=== PATIENT | female | born 1965 | race Caucasian/White ===

== ENCOUNTER 2023-09-18 11:42 | Outpatient (CLI) | payer OTHER, SELFPAY ==
[2023-09-18 12:32] LABS: Basophils Percent Auto 0.5 % (0.2-1.2); Eosinophils Absolute Auto 0.1 K/mm3 (0-0.3); Eosinophils Percent Auto 1.5 % (0-4.4); Hematocrit 41.2 % (37.0-47.0); Hemoglobin 13.9 g/dL (12.0-15.0); Immature Granulocyte Absolute 0.04 K/mm3 (0.00-0.031); Immature Granulocyte Percent A 0.5 % (0-0.5); Lymphocytes Absolute Auto 1.69 K/mm3 (0.9-3.2); Lymphocytes Percent Auto 22.6 % (18.3-44.2); Mean Corpuscular HGB Conc 33.7 g/dl (32-36); Mean Corpuscular Hemoglobin 28.4 pg (26-34); Mean Corpuscular Volume 84.3 fl (80-100); Mean Platelet Volume 10.3 fl (7.4-10.4); Monocytes Absolute Auto 0.6 K/mm3 (0.1-0.6); Monocytes Percent Auto 8.4 % (2.6-8.5); Neutrophils Percent Auto 66.5 % (45.5-73.1); Platelet Count Result 268 k/mm3 (150-375); Red Blood Count 4.89 M/mm3 (4.2-5.4); Red Cell Distribution Width 13.4 % (11.5-14.5); White Blood Count 7.5 K/mm3 (4.5-10.0)
[2023-09-18 12:56] LABS: Alanine Aminotransferase 28 U/L (6-35); Albumin Level 4.5 g/dL (3.5-5.1); Alkaline Phosphatase 87 U/L (38-126); Anion Gap 7 mmol/L (8-16); Aspartate Amino Transferase 25 U/L (14-36); Bilirubin,Total 0.7 mg/dL (0.2-1.3); Blood Urea Nitrogen 14 mg/dL (7-17); Calcium 9.3 mg/dL (8.4-10.2); Carbon Dioxide 25 mmol/L (22-30); Chloride 103 mmol/L (98-107); Cholesterol 177 mg/dL (0-200); Estimated Glomerular Filt Rate > 60; Glucose 89 mg/dL (65-110); HDL Direct 71 mg/dL; Potassium 4.3 mmol/L (3.4-5.0); Sodium 135 mmol/L (137-145); Triglycerides 95 mg/dL (<150)
[2023-09-18 13:07] LABS: LDL Cholesterol Direct 78 mg/dL
== END 2023-09-18 11:43 | disposition home or self-care (01) ==
LOC: ANHLAB 11:50
PROVIDERS: PCP Family Medicine; Visit Provider Nurse Practitioner Family
DX: Z00.00 Encounter for general adult medical examination without abnormal findings (principal)
CPT/HCPCS: 36415; 80053; 80061; 84443; 85025

== ENCOUNTER 2023-12-22 11:00 | Emergency (ER) | payer OTHER, SELFPAY ==
--- NOTE | 2023-12-22 11:10 | ED.URI ---
HPI - URI/Sore Throat General Chief Complaint: Upper Respiratory Infection Stated Complaint: rt ear pain,sinus pressure Time Seen by Provider: 12/22/23 11:07 Source: patient Mode of arrival: ambulatory Limitations: no limitations History of Present Illness HPI Narrative: Brittney is a 58-year-old female patient presenting to clinic today with complaints of right ear pain and sinus pressure that has been ongoing since November. She reports she just finished up Augmentin yesterday for a sinus infection. Reports that she is still having a lot of ear pain and congestion. States that she has sloshing sound in her right ear when she is lying down and is still suffering from a cough and nasal congestion. Denies any fever or chills. Denies any shortness of breath or chest pain. MD elicited complaint: cough, rhinorrhea, nasal congestion and other (Right ear congestion) Related Data Home Medications Medication Instructions Recorded Confirmed atorvastatin 10 mg tablet mg 12/22/23 gabapentin 800 mg tablet mg 12/22/23 lisinopril 10 mg tablet mg 12/22/23 metoprolol succinate 25 mg mg PO 12/22/23 tablet,extended release 24 hr Allergies Allergy/AdvReac Type Severity Reaction Status Date / Time morphine Allergy Mild Hives / Verified 12/22/23 11:14 Red Face iohexol Allergy Hives Verified 12/22/23 11:14 [From contrast - CT, X-RAY] SEAFOOD-N & V Allergy Unknown HIVES Uncoded 12/22/23 11:14 Review of Systems Review of Systems: Pertinent positives per HPI. Patient denies any fever, chills, rash, headache, visual changes, dizziness, cough, shortness of breath, chest pain, palpitations, nausea, vomiting, diarrhea, constipation, abdominal pain, or any urinary issues. PMFSH Comments At the time of my signature, I reviewed and agree with the nursing past medical, surgical, social, and family history. There is no relevant family history pertinent to the patient complaint. Exam Narrative: General: Well-developed, well nourished, in no apparent distress Head: Normocephalic, atraumatic Eyes: Pupils equally round and reactive to light bilaterally, EOM intact, sclera and conjunctive clear, no discharge, lids normal Ears: Left TM intact and clear, right TM intact, bulging, fluid noted behind the TM, unable to see the ossicle due to the congestion, ear canals clear, no drainage, grossly hearing normal. Nose: Nares patent, clear nasal discharge, moderate inflammation, maxilla sinus tenderness. Mouth: Oral pharynx without lesions or masses, good dentition, MMM. Postnasal drip Neck: Supple, trachea midline, no enlargement of anterior or posterior cervical nodes, no thyroid masses or goiter palpable. Cardio: Regular rate and rhythm, s1 and s2 normal, no murmur appreciated. Resp: Clear to auscultation bilaterally, no rhonchi, rales, wheezing or rubs Course Course Emergency Course: Portions of this record may have been created with voice recognition software. Level of Care: Express Care Visit Vital Signs Vital signs: Vital signs reviewed MDM - URI/Sore Throat MDM Narrative Medical decision making narrative: At the time of visit patient is resting comfortably on the exam table. Patient appears to be nontoxic. Plan: I suspect patient has right serous otitis with sinusitis. Prescription for prednisone was given to the patient. Supportive measures were discussed with the patient and they voiced understanding discharge instructions and agrees to treatment plan. Return precautions reviewed Differential Diagnosis Differential diagnosis: Likely upper respiratory infection, otitis media, sinusitis, viral infection, bronchitis, influenza, pharyngitis and other (COVID) Discharge Plan Discharge Clinical Impression: Sinusitis Qualifiers: Sinusitis location: maxillary Chronicity: acute Recurrence: non-recurrent Qualified Code(s): J01.00 - Acute maxillary sinusitis, unspecified Acute serous otitis media, right ear Q
[2023-12-22 11:14] VITALS: BP 154/87; PULSE 77; RESP 16; TEMP 36.4; O2SAT 99
== END 2023-12-22 11:35 | disposition home or self-care (01) ==
PROVIDERS: Emergency Provider Nurse Practitioner Family; PCP Family Medicine
DX: J01.00 Acute maxillary sinusitis, unspecified (principal); H65.01 Acute serous otitis media, right ear; I10 Essential (primary) hypertension
CPT/HCPCS: 99213; G0463

== ENCOUNTER 2024-01-12 09:36 | Outpatient (CLI) | payer OTHER, SELFPAY ==
--- NOTE | 2024-01-17 16:43 | WPDHOMESLEEP ---
Sleep Study - Home Unattended Date of Study: 01/12/24 Ordering Provider: Todd OliverMD Interpreting Provider: Mayra Shankar, DO Home Sleep Study Type: Watch PAT Height: 1.57 m Weight: 78.471 kg Body Mass Index: 31.6 Neck Circumference (inches): 14.5 [place]: 9 Reason for Sleep Study Loud snoring, daytime hypersomnia Sleep History The patient is a 58-year-old female with hypertension, anxiety, depression, hyperlipidemia, trigeminal neuralgia, migraine, postmenopausal syndrome and tachycardia had a sleep study ordered by her primary care physician for evaluation of sleep apnea. The patient denies awakening from sleep short of breath. She denies awakening at night with heartburn, belching or cough. She constantly snores loudly enough that others complain. She occasionally has trouble sleeping when she has a cold. She denies waking up gasping for air throughout the night. She frequently has breathing problems at night observed by herself or others. She rarely sweats excessively at night. She denies having heart palpitations or irregular heartbeats during the night. She occasionally falls asleep during the day but never while driving. She denies sleep paralysis, cataplexy and hypnagogic / hypnopompic hallucinations. She denies having trouble at school or work due to sleepiness. She denies feeling afraid of going to sleep. She denies having nightmares. She occasionally remembers her dreams. She denies having thoughts racing through her mind. She occasionally feels sad, depressed and anxious. She frequently has muscular tension. She rarely notices parts of her body jerk. She occasionally kicks during the night. She denies having crawling and aching feelings in her legs but rarely has leg pain during the night. She constantly grinds her teeth during sleep and frequently awakens with morning jaw pain. She is occasionally bothered by pain during the day but rarely awakened by pain during the night. She occasionally wakes up feeling stiff in the morning. She occasionally wakes up with sore or achy muscles. She frequently wakes up with pain in the neck, spine and other joints. She goes to bed at 11:00 p.m. on weekdays and at midnight on the weekends. She is able to fall asleep immediately. She wakes up once throughout the night at most. Whenever she wakes up during the night she will try to go back to sleep or read. She wakes up between 5-7 a.m. on both weekdays and weekends. She typically gets 6 hours of sleep per night. She will stay in bed for 5-10 minutes after waking up in the morning. She currently lives alone. She will consume caffeinated beverages within 2 hours of bedtime. She denies engaging in physical exercise before bedtime. She will read and watch television before falling asleep. She will occasionally take naps in the afternoon or the evening and they are refreshing. She consumes 3-4 caffeinated beverages per day. She denies alcohol and recreational drug use. Medications Home Medications Medication Instructions Recorded Confirmed Type atorvastatin 10 mg tablet mg 12/22/23 History gabapentin 800 mg tablet mg 12/22/23 History lisinopril 10 mg tablet mg 12/22/23 History metoprolol succinate 25 mg mg PO 12/22/23 History tablet,extended release 24 hr prednisone 20 mg tablet 40 mg PO DAILY 5 days #10 tabs 12/22/23 Rx Sleep Procedure The sleep study was completed using AccuDraftT a technically adequate device with seven channels: peripheral arterial tone, actigraphy, body position, snore, respiratory movement, pulse oximetry, sleep staging, and heart rate. Prior to using the device, the patient received verbal and written instructions for its application and was provided with the help desk phone number for additional telephonic instruction with 24-hour availability of qualified personnel to answer questions. The study was scored using CMS guidelines. Sleep Architecture The patient
[2024-01-17 16:44] VITALS: BMI 31.6
== END 2024-01-13 07:30 | disposition home or self-care (01) ==
LOC: ANHCSM 09:37
PROVIDERS: PCP Family Medicine; Visit Provider Family Medicine
DX: G47.19 Other hypersomnia (principal)
CPT/HCPCS: 95800

== ENCOUNTER 2024-02-23 08:04 | Outpatient (CLI) | payer OTHER, SELFPAY ==
--- NOTE | ~2024-02-23 | CT_ITS ---
Non-contrast CT scan of the Abdomen and Pelvis Clinical indication: Abdominal pain Technique: 2.5 mm axial scans were obtained through the abdomen and pelvis without intravenous or or al contrast. Dose reduction technique was used on this scan by utilizing automated exposure control a nd iterative reconstruction technique. The dose-length product (DLP) was 620.04 mGy-cm. Findings: Images through the lung bases reveal no abnormalities. 3 mm nonobstructing left renal stone present. No right renal stone. No ureteral stone or hydronephros is on either side. The liver, spleen, pancreas, and adrenals appear normal. Cholecystectomy clips are present. There is no aortic aneurysm. There is no evidence of bowel obstruction. Small fat-containing umbilical hernia noted. Images through the pelvis were performed. There is no evidence of ascites or lymphadenopathy. Urinary bladder unremarkable. No pelvic mass seen. Impression: 3 mm nonobstructing left renal stone. Small fat-containing umbilical hernia. Reviewed, dictated and finalized at [facility]. Impression: 3 mm nonobstructing left renal stone. Small fat-containing umbilical hernia.
[2024-02-23 09:09] LABS: Basophils Percent Auto 0.5 % (0.2-1.2); Eosinophils Absolute Auto 0.1 K/mm3 (0-0.3); Eosinophils Percent Auto 2.4 % (0-4.4); Hematocrit 41.8 % (37.0-47.0); Hemoglobin 13.7 g/dL (12.0-15.0); Immature Granulocyte Absolute 0.03 K/mm3 (0.00-0.031); Immature Granulocyte Percent A 0.5 % (0-0.5); Lymphocytes Absolute Auto 1.48 K/mm3 (0.9-3.2); Lymphocytes Percent Auto 25.6 % (18.3-44.2); Mean Corpuscular HGB Conc 32.8 g/dl (32-36); Mean Corpuscular Hemoglobin 28.2 pg (26-34); Mean Platelet Volume 10.1 fl (7.4-10.4); Monocytes Absolute Auto 0.5 K/mm3 (0.1-0.6); Monocytes Percent Auto 8.7 % (2.6-8.5); Neutrophils Absolute Auto 3.6 K/mm3 (1.3-6.7); Neutrophils Percent Auto 62.3 % (45.5-73.1); Platelet Count Result 226 k/mm3 (150-375); Red Blood Count 4.86 M/mm3 (4.2-5.4); Red Cell Distribution Width 13.1 % (11.5-14.5); White Blood Count 5.8 K/mm3 (4.5-10.0)
[2024-02-23 09:51] LABS: Alanine Aminotransferase 31 U/L (6-35); Albumin Level 4.5 g/dL (3.5-5.1); Alkaline Phosphatase 78 U/L (38-126); Amylase 63 U/L (30-110); Anion Gap 6 mmol/L (4-12); Aspartate Amino Transferase 33 U/L (14-36); Bilirubin,Total 0.6 mg/dL (0.2-1.3); Blood Urea Nitrogen 15 mg/dL (7-17); Calcium 9.7 mg/dL (8.4-10.2); Carbon Dioxide 28 mmol/L (22-30); Chloride 108 mmol/L (98-107); Estimated Glomerular Filt Rate > 60; Glucose 99 mg/dL (65-110); Lipase 102 U/L (23-300); Potassium 4.4 mmol/L (3.4-5.0); Sodium 142 mmol/L (137-145)
== END 2024-02-23 08:05 | disposition home or self-care (01) ==
PROVIDERS: PCP Family Medicine; Visit Provider Family Medicine
DX: N20.0 Calculus of kidney (principal); K42.9 Umbilical hernia without obstruction or gangrene
CPT/HCPCS: 36415; 74176; 80053; 82150; 83690; 85025

== ENCOUNTER 2024-09-08 09:30 | Outpatient (RCR) | payer OTHER, SELFPAY ==
--- NOTE | 2024-07-21 16:26 | PTOPEVAL1 ---
Assessment and note entered by Tanja Amaral, PT Evaluation Information Assessment Status Evaluation Diagnosis trochanteric bursitis R hip, Osteoarthritis R hip ICD-10 Condition Codes (PT) Pain in right hip M25.551,R26.9,Weakness R53.1 Onset ~3-4 months Subjective Information September 2023 got covid-19 and all the joints hurt but when got better, the right hip continued to hurt. Steroid shot 08/13/2021 Started to flare up in the beginning of summer Reports sometimes limps with first getting up Pt reports is unable to roll onto her right side and is awake much of the night with this reports will rotate to pelvis and back Was walking 3 miles 3x weekly and hasn't been able to do that. Recently has been able to return to 1 .5 miles once weekly. Is limited in activities with family like bowling or trampoline park Alternates ice and heat, tried meloxicam but this didn't do much, tried stretches which didn't help. Steroid shot helped some but it's still painful Reported Pain Level Pain Score 4: Self Report Assessment PT Clinical Summary Pt presents with complaints of right hip pain. Reports initially began Sep 2023 and has been getting progressively worse. She had a steroid infection that helped but continues to have pain that ranges from 4-9/10. Evaluation demo's postural alignment deficits with bilat feet as well as sacral torsion and possible pelvic upslip. She surely demo's greatly reduced ROM of the right hip in all planes, significantly reduced strength in right hip compared to left. She also demo's guarded gait likely secondary to pain. Pt will greatly benefit from physical therapy to address deficits and improve function without pain Plan of Care Interventions Electrical Stimulation,Gait Training,Hot Pack/Cold Pack,Manual Therapy,Neuro Re-education,Patient/ Caregiver Educati,Therapeutic Activities, Therapeutic Exercise,Self-Care/Home Management, Ultrasound,Other Other Interventions Jerry, JUDY PT Services Indicated Yes Treatment Frequency and 2x weekly x 16 vistis Duration These treatments will address the objective and functional deficits as defined above. The patient will be advanced safely and appropriately in order for the patient to progress towards his/her prior level of function. Additional exercises will be introduced and as well as a comprehensive home exercise program upon discharge, if needed, ?to ensure carryover of functional gains achieved in the clinic. This treatment plan has been reviewed and agreement upon by the patient.
--- NOTE | 2024-07-21 16:26 | OPREHPOC ---
Outpatient Therapy Plan of Care This is a Multidisciplinary Plan of Care that may contain components documented by all disciplines (PT, OT, and ST.) PT Problem 1 PT Problem #1 Knowledge Deficit PT Goal 1 Goal / Goal Update Pt will be independent in HEP Pt will verbalize understanding of diagnosis and prognosis Target Visit 8 PT Problem 2 PT Problem #2 Pain PT Goal 1 Goal / Goal Update Pt will report lowest pain rating at 0/10 to show improvement in overall discomfort Target Visit 8 PT Goal 2 Goal / Goal Update Pt will report greatest pain level at 3/10 or less to improve ADLs and activities Target Visit 16 PT Problem 3 PT Problem #3 Impaired Range of Motion PT Goal 1 Goal / Goal Update Pt will demo passive right hip flexion on 0-120 Target Visit 8 PT Goal 2 Goal / Goal Update Pt will demo ROM right hip within 75% of left hip in all planes Target Visit 16 PT Problem 4 PT Problem #4 Impaired Strength PT Goal 1 Goal / Goal Update Pt will demo equal strength RLE and LLE in all tested planes Target Visit 8 PT Goal 2 Goal / Goal Update Pt will demo strength of 4/5 in all tested planes Target Visit 16
--- NOTE | 2024-09-08 16:53 | PTOPPROG ---
Assessment and note entered by Tanja Amaral, PT Evaluation Information Assessment Status Progress Diagnosis trochanteric bursitis R hip, Osteoarthritis R hip ICD-10 Condition Codes (PT) Pain in right hip M25.551,R26.9,Weakness R53.1 Onset ~3-4 months Subjective Information Pt reports feeling 20% improved overall. States is sleeping better some nights, but one night a while back was very bad when the weather changed. Assessment PT Clinical Summary Pt reports feeling minimal improvement in her pain in her hip. Cont to have decreased ROM in right hip though this is improved overall. Cont to have deficits in RLE hip strength as well. Pt special tests are negative for labral clicking, meniscal tear, valgus and varus stress. X-ray shows degeneration of the hip joint. As patient has made minimal progress with therapy, she was advised to return to ortho to discuss further options. Thus patient is being place on hold at this time to allow her time to discuss options with her Ortho and return to therapy if necessary. Otherwise if she has not returned or communicated a plan to return within 30 days, she will be discharged from this POC. Plan of Care Interventions Electrical Stimulation,Gait Training,Hot Pack/Cold Pack,Manual Therapy,Neuro Re-education,Patient/ Caregiver Educati,Therapeutic Activities, Therapeutic Exercise,Self-Care/Home Management, Ultrasound,Other Other Interventions Jerry, JUDY PT Services Indicated Yes Treatment Frequency and 1-2xd weekly x 10 visits Duration These treatments will address the objective and functional deficits as defined above. The patient will be advanced safely and appropriately in order for the patient to progress towards his/her prior level of function. Additional exercises will be introduced and as well as a comprehensive home exercise program upon discharge, if needed, ?to ensure carryover of functional gains achieved in the clinic. This treatment plan has been reviewed and agreement upon by the patient.
== END 2024-10-19 23:59 | disposition home or self-care (01) ==
LOC: ANHHIPT 09:30
PROVIDERS: PCP Family Medicine; Visit Provider Orthopaedic Surgery
DX: M70.61 Trochanteric bursitis, right hip (principal); M16.11 Unilateral primary osteoarthritis, right hip
CPT/HCPCS: 97014; 97035; 97110; 97140; 97162; 97530; 97750; G0283

== ENCOUNTER 2024-09-22 11:19 | Emergency (ER) | payer OTHER, SELFPAY ==
[2024-09-22 11:39] VITALS: BP 150/86; PULSE 76; RESP 16; TEMP 36.7; O2SAT 99
--- NOTE | 2024-09-22 11:39 | ED.FEMALEGU ---
HPI - Female Genitourinary General Chief complaint: Urogenital-Female Stated complaint: UTI Time Seen by Provider: 09/22/24 11:39 Source: patient Mode of arrival: ambulatory Limitations: no limitations History of Present Illness HPI Narrative: Brittney is a 49-year-old female patient presenting to the clinic today with complaints of possible UTI. She reports she has been having some burning with urination, mid low back pain, and urinary frequency that started 3 days ago. She reports that she did take a tub bath few days prior that to soak her hip as she has been having hip pain. Denies any vaginal discharge but does have some internal vaginal burning. She is not currently sexually active in not concern for STIs. Has had a full hysterectomy. She denies any abdominal pain, vomiting, or diarrhea. Does report some nausea but it has resolved. Related Data Home Medications Medication Instructions Recorded Confirmed atorvastatin 10 mg tablet mg 12/22/23 07/13/24 gabapentin 800 mg tablet mg 12/22/23 07/13/24 lisinopril 10 mg tablet mg 12/22/23 07/13/24 metoprolol succinate 25 mg mg PO 12/22/23 07/13/24 tablet,extended release 24 hr sertraline 100 mg tablet (Zoloft) 100 mg PO DAILY 07/27/24 Allergies Allergy/AdvReac Type Severity Reaction Status Date / Time morphine Allergy Mild Hives / Verified 09/22/24 11:54 Red Face iohexol Allergy Hives Verified 09/22/24 11:54 [From contrast - CT, X-RAY] SEAFOOD-N & V Allergy Unknown HIVES Uncoded 09/22/24 11:54 Review of Systems Review of Systems: Pertinent positives per HPI. Patient denies any fever, chills, rash, headache, visual changes, dizziness, cough, runny nose, sore throat, shortness of breath, chest pain, palpitations, vomiting, diarrhea, constipation, abdominal pain PMFSH Family History Family History Unknown Lung disease Hypertension Cerebrovascular accident High cholesterol Social History Social History Smoking status: Never smoker Alcohol intake: current Alcohol use details: 2 drinks per month Comments At the time of my signature, I reviewed and agree with the nursing past medical, surgical, social, and family history. There is no relevant family history pertinent to the patient complaint. Exam Narrative: General: Well-developed, well nourished, in no apparent distress. Head: Normocephalic, atraumatic. Cardio: Regular rate and rhythm, s1 and s2 normal, no murmur appreciated. Resp: Clear to auscultation bilaterally, no rhonchi, rales, wheezing or rubs. Abdomen: Soft, pliable, bowel sounds present in all quadrants, non-tender to palpation, no organomegly, no CVAT tenderness. : Deferred Course Course Emergency Course: Portions of this record may have been created with voice recognition software. Level of Care: Express Care Visit Vital Signs Vital signs: Vital Signs Temperature 36.7 C 09/22/24 11:39 Pulse Rate 76 09/22/24 11:39 Respiratory Rate 16 09/22/24 11:39 Blood Pressure 150/86 H 09/22/24 11:39 Pulse Oximetry 99 09/22/24 11:39 Oxygen Delivery Room Air 09/22/24 11:39 Temperature 36.7 C 09/22/24 11:39 Pulse Rate 76 09/22/24 11:39 Respiratory Rate 16 09/22/24 11:39 Blood Pressure 150/86 H 09/22/24 11:39 Pulse Oximetry 99 09/22/24 11:39 Oxygen Delivery Room Air 09/22/24 11:39 Vital signs reviewed MDM - Female Genitourinary MDM Narrative Medical decision making narrative: At the time of visit patient is resting comfortably on the exam table. Patient appears to be nontoxic. Labs: Urinalysis is negative for any sign of infection in the clinic today. We will send urine for culture. Plan: Patient would like to try some Diflucan as she thinks that she may have a yeast infection that she is having burning within the vagina. She denies any vaginal discharge or odor at this time. Will send in prescription for Diflucan and send urine for culture. Patient denies any history of interstitial cystitis or concern for sexually transmitted infections. Supportive measures were discussed with the patient and they voiced understanding discharge instructions and agrees to treatment plan. Return precautions reviewed Differential Diagnosis Differential diagnosis: Likely urinary tract infection, bacterial vaginosis, trichomoniasis, cervicitis, ovarian cyst, vaginitis and cystitis Lab Data Labs: Lab Results 09/22/24 Range/Units 11:57 POC Urine Color Yellow POC Urine Clarity Clear POC Urine pH 6.0 POC Ur Specif Nak[place] 1.010 POC Urine Protein Negative (Negative) POC Ur Glucose (UA) Negative (Negative) POC Urine Ketones Negative (Negative) POC Urine Blood Negative (Negative) POC Urine Nitrite Negative (Negative) POC Urine Bilirubin Negative (Negative) POC Urine Urobilinogen 0.2 POC U Leukocyte Esteras Negative (Negative) Discharge Plan Discharge Clinical Impression: Symptoms of urinary tract infection, Vaginal burning Patient Disposition: Home, Self-Care Condition: Stable Instructions: Antibiotic Form, Dysuria (ED), Urinary Urgency and Frequency (DC) Additional Instructions: UA is negative in the clinic today. We will send for culture Take medications as prescribed-Diflucan Increase fluids and stay well hydrated Wipe front to back. May use wet wipes. Avoid tub baths If sexually active- pee before and after intercourse. Wear cotton panties Avoid tight clothing up against the genitals Follow up with your PCP in 1 week if symptoms persist. Prescriptions: New fluconazole 150 mg tablet 150 mg PO ONCE Qty: 2 0RF Rx Instructions: as a single dose. May repeat in 72 hours if needed. No Action atorvastatin 10 mg tablet gabapentin 800 mg tablet lisinopril 10 mg tablet metoprolol succinate 25 mg tablet extended release 24 hr PO sertraline [Zoloft] 100 mg tablet 100 mg PO DAILY Follow-up/Referrals: Benito,Todd Marinelli MD [Primary Care Provider] - Time of Disposition: 12:08 Quality NIHSS Nursing Documentation ED NIHSS nursing documentation: reviewed/agree
[2024-09-22 12:01] LABS: EDUAAPPEAR Clear; EDUABILI Negative (Negative); EDUABLOOD Negative (Negative); EDUACOLOR1 Yellow; EDUAGLUCOSE Negative (Negative); EDUAKETONE Negative (Negative); EDUALEUKO Negative (Negative); EDUANITRATE Negative (Negative); EDUAPROTEIN Negative (Negative); EDUAUROBILI 0.2
== END 2024-09-22 12:15 | disposition home or self-care (01) ==
PROVIDERS: Emergency Provider Nurse Practitioner Family; PCP Family Medicine
DX: R30.0 Dysuria (principal); R35.0 Frequency of micturition; M54.50 Low back pain, unspecified; R10.2 Pelvic and perineal pain
CPT/HCPCS: 81003; 87086; 99213; G0463

== ENCOUNTER 2024-09-25 10:10 | Outpatient (CLI) | payer OTHER, SELFPAY ==
--- NOTE | ~2024-09-25 | MR_ITS ---
EXAMINATION: MR hip RT wo con DATE: 09/25/2024 11:13 INDICATION: Right hip pain TECHNIQUE: Magnetic resonance imaging (MRI) of the right hip was performed without intravenous contr ast. Sequences included full-field axial PD-weighted FS FSE and T1-weighted FSE, coronal of the pelvi s with PD-weighted FS FSE, T2-weighted FSE and T1-weighted FSE, small field of view of the right hip with axial PD-weighted FS FSE, sagittal PD-weighted FS FSE, coronal PD-weighted FS FSE and coronal T 2 weighted FSE. Additional radial T1-weighted FGR oriented orthogonal to the acetabular rim were obta ined for evaluation of the labrum. COMPARISON: None FINDINGS: Bones/labrum/cartilage: Alignment is normal. No fracture, avascular necrosis or pathologic marrow replacing process. Partial -thickness tear along the 11:00-12:30 position of the superolateral right acetabular labrum (3:00 ant erior). Mild osteoarthritis at the right hip with mild partial-thickness cartilage loss without evide nt chondral surface regularity most prominent along the anterior and posterior superior joint space. Fluid: Symmetric physiologic amount of fluid within both hip joints. Soft tissues: Normal and symmetric muscle bulk and signal in the pelvis and visualized proximal thighs. There is ri ght gluteus minimus bursitis with mild tendinopathy and small partial-thickness tear at the greater t rochanteric insertion of the right gluteus minimus tendon. The iliopsoas,, proximal hamstring and rem aining gluteal tendons are normal. The uterus is not identified and has likely been surgically resect ed. There are few diverticula along the sigmoid colon without adjacent inflammatory change to suggest diverticulitis. Normal appendix. Limited evaluation of visceral organs of the pelvis is otherwise un remarkable. No pathologically enlarged pelvic/inguinal lymphadenopathy. IMPRESSION: 1. Right gluteus minimus bursitis with mild tendinopathy and mild partial thickness tear at the great er trochanter insertion of the right gluteus minimus tendon. 2. Mild right hip osteoarthritis with tear of the superolateral acetabular labrum. Reviewed, dictated and finalized at location B. ORT TRAFFIC CONTROLLER IMPRESSION: 1. Right gluteus minimus bursitis with mild tendinopathy and mild partial thick ness tear at the greater trochanter insertion of the right gluteus minimus tend on. 2. Mild right hip osteoarthritis with tear of the superolateral acetabular labr um.
== END 2024-09-25 10:11 | disposition home or self-care (01) ==
LOC: GOSHIMG 10:10
PROVIDERS: PCP Family Medicine; Visit Provider Orthopaedic Surgery
DX: M70.71 Other bursitis of hip, right hip (principal); M76.01 Gluteal tendinitis, right hip; S76.011A Strain of muscle, fascia and tendon of right hip, initial encounter; S73.191A Other sprain of right hip, initial encounter; X58.XXXA Exposure to other specified factors, initial encounter; M16.11 Unilateral primary osteoarthritis, right hip
CPT/HCPCS: 73721

== ENCOUNTER 2024-10-10 08:24 | Outpatient (CLI) | payer OTHER, SELFPAY ==
--- NOTE | ~2024-10-10 | XR_ITS ---
EXAMINATION: XR lg joint inject/asp w image DATE: 10/10/2024 09:12 INDICATION: Right hip arthritis TECHNIQUE: A time-out was performed to verify the patient's name, date of , and procedure to b e performed. The procedure including the risks, benefits, and alternatives was discussed with the pat ient. Risks discussed included bleeding and infection. The patient understood the risks and agreed to proceed. The skin overlying the right hip joint was prepped and draped in usual sterile fashion. A nesthetic was administered with 1% lidocaine subcutaneously. A 22 G needle was advanced under fluoro scopic guidance into the joint. Injection of a small amount of room air confirmed intra-articular po sition of the needle. Subsequently, injectate consisting of 3 mL of a 2:1 extradural of 0.5% Marcain e: 80 mg/mL Depo-Medrol was instilled. The needle was removed and the entry site was cleaned and dres sed. There were no immediate complications. Fluoroscopy exposure time was 0.1 minutes. The total num brennan of images was 1. FINDINGS: Real-time fluoroscopy demonstrates the needle and injected gas within the right hip joint. Patient's pain prior to procedure:8/10. Patient's pain following the procedure: 4/10. IMPRESSION: 1. Successful right hip joint injection of local anesthetic and steroid with decrease in the patient' s presenting pain. Reviewed, dictated and finalized at location A. E MINER IMPRESSION: 1. Successful right hip joint injection of local anesthetic and steroid with de crease in the patient's presenting pain.
== END 2024-10-10 08:25 | disposition home or self-care (01) ==
PROVIDERS: PCP Family Medicine; Visit Provider Orthopaedic Surgery
DX: M16.11 Unilateral primary osteoarthritis, right hip (principal)
CPT/HCPCS: 20610; 77002; J1010

== ENCOUNTER 2025-05-28 07:23 | Outpatient (CLI) | payer OTHER, SELFPAY ==
--- OUTSIDE RECORDS SUMMARY | 2025-05-28 07:29 | XMS_ITS ---
Author Organization [facility] [place] ([address]) Address [address] [facility] [address] [place] [address] Care Team Providers Care Third Rail Installer Name Role Phone Alexx Monge Unavailable [phone] REASON FOR VISIT [facility], [...] discontinue and re-order from Quick Search* Active TRANSPORTATION PROJECT MANAGER Thyroid 30 MG 1/2 tablet on an [...] Provider Diagnosis [facility] [place] ([address]) [address] [place] [phone] 09/07/2024 Alexx Monge Chronic fatigue, unspecified R53.82 [...] None Progress Notes * Brittney WELSHDOB: [birth year] (59 yo F)Acc No.[id number]:09/07/2024 Weight Loss Patient: Brittney BORJA Provider: Leticia Monge MD :1965 A ge:59 Y S ex:Female Date:09/07/2024 Address:[address] [place], [place] [id number] Subjective: * Chief Complaints: * 1 . [...] tab(s) orally once a day , Taking TRANSPORTATION PROJECT MANAGER Thyroid 30 MG Tablet 1/2 tablet on [...] signature of Reid Monge MD, FAAAAI on 05/28/2025 at 07:28 AM CDT Sign off status: Pending * Provider: Leticia Monge MD Date: 1 Generated for Vianey cantrell/Honey/Raegan on: 0 05/28/2025 07:28 AM CDT
--- OUTSIDE RECORDS SUMMARY | 2025-05-28 07:29 | XMS_ITS ---
Author Organization [facility] [place] ([address]) Address [address] [facility] [address] [place] [address] Care Team Providers Care Web Ui Developer Name Role Phone Alexx Monge Unavailable [phone] REASON FOR VISIT [facility], on Tirzepatide, no side effects, appetite suppression is lasting 3-4 days. no new side effects, Desired weight loss: 30-40 lbs, -0.2 lbs lbs since last visit, -14.6 lbs total, No history MTC or MEN2 or pancreatitis, Concerned about future DM and OA Medications Medication SIG (Take, Route, Frequency, Duration) Notes Start Date End Date Status ANALYTIC PROGRAMMER Thyroid 30 MG 1/2 tablet on an [...] Provider Diagnosis [facility] [place] ([address]) [address] [place] [phone] 08/31/2024 Alexx Monge Chronic fatigue, unspecified R53.82 [...] abdomen Frequency: weekly Lot Number/Expiration: Medication Source: [place] IAT-Auto Adverse Reaction: None Progress Notes * Brittney WELSHDOB: [birth year] (59 yo F)Acc No.[id number]:08/31/2024 Weight Loss Patient: Lizbet BORJAette Provider: Leticia Monge MD :1965 A ge:59 Y S ex:Female Date:08/31/2024 Address:[address] [place] [address] Subjective: * Chief Complaints: * 1 . [...] tab(s) orally once a day , Taking ANALYTIC PROGRAMMER Thyroid 30 MG Tablet 1/2 tablet on [...] ot Number/Expiration 0 M edication Source [facility] A dverse Reaction N one * Follow Up: 1 Week (Reason: GLP-1 Agonist Administration. GLP-1 Agonist Administration) * Billing Information: * Visit Code: * Procedure Codes: * Electronic signature of Patr ick Win , MD, FAAAAI on 05/28/2025 at 07:29 AM CDT Sign off status: Pending * Provider: Leticia Monge MD Date: Generated for Vianey cantrell/Honey/Raegan on: 0 05/28/2025 07:29 AM CDT
--- OUTSIDE RECORDS SUMMARY | 2025-05-28 07:29 | XMS_ITS | Clinical Summary ---
Author Organization [facility] Address [address] [place] [address] Phone Care Team Providers Care Operations Supervisor Chemical Cleaning Name Role Phone Todd Oliver MD Primary Care Provide r Encounters Date Type Department Care Team Description 05/08/2025 External Device Data [facility] ABSTRACTION Provider, Abstract 04/10/2025 External Device Data [facility] ABSTRACTION Provider, Abstract 04/04/2025 External Device Data [facility] ABSTRACTION Provider, Abstract 04/03/2025 External Device Data [facility] ABSTRACTION Provider, Abstract from Last 3 Months Family History Medical History Relation Name Comments Breast Cancer Other MGAunt Ovarian Cancer Neg Hx Relation Name Status Comments Other MGAunt Social History Tobacco Use Types Packs/Day Years Used Date Smoking Tobacco: Never Assessed Comments Unknown Sex and Gender Information Value Date Recorded Sex Assigned at Not on file Legal Sex Female 1:56 PM CDT Gender Identity Not on file Sexual Orientation Not on file Plan of Treatment Health Maintenance Due Date Last Done Comments FIT-DNA Q 3 years 2008 FIT/FOBT Q 1 year 2008 Flex Sig/CT Colonography Q 5 years 2008 ZOSTER VACCINE (1 of 2) 2013 COVID-19 Vaccine (2023-2 5 season) 2024 08/21/2021, 12/16/2020, 11/25/2020 BREAST CANCER SCREENING 05/24/2025 05/24/20, 08/27/2023, 02/18/2023, Additional history exists INFLUENZA VACCINE (#1) 2025 COLORECTAL SCREENING 09/29/2028 09/29/2018 Colorectal Cancer Screening 09/29/2028 DTAP/TDAP/TD VACCINES (2 - T d or Tdap) 04/14/2033 04/14/2023 RSV VACCINE (60+ or ) (1 - 1-dose 75+ series) 2038 Procedures Procedure Name Priority Date/Time Associated Diagnosis Comments MAMMO 3D GALLO DIAGNOSTIC BILAT W OR WO CAD Routine 05/24/2024 10:06 AM CDT Abnormal mammogram from Last 3 Months or Most Recently Relevant to Health Maintenance Results * (ABNORMAL) MAMMO 3D GALLO DIAGNOSTIC BILAT W OR WO CAD (05/24/2024 10:06 AM CDT) Anatomical Region Laterality Modality Breast Bilateral Mammography 05/24/2024 10:0 6 AM CDT Impressions 05/24/2024 10:42 AM CDT IMPRESSION: 1. Unchanged multiple similar-appearing bilateral breast masses likely representing cysts. RECOMMENDATION: Follow-up bilateral diagnostic mammography in one year to assess for change. Bilateral breast ultrasound may also be required. BI-RADS Category 3: Probably benign findings DICTATION LOCATION: [facility] 05/24/2024 10:42 AM CDT EXAM: BILATERAL DIGITAL DIAGNOSTIC MAMMOGRAPHY WITH TOMOSYNTHESIS AND CAD Exam date: 05/24/2024 INDICATION: Follow-up probably benign similar-appearing bilateral breast masses likely representing cysts. COMPARISON: 08/27/2023, 02/18/2023, 01/01/2023, 08/02/2018, 07/14/2017 mammography. Correlation is made to the ultrasound 02/18/2023 and 01/27/2023. BREAST COMPOSITION: Scattered areas of fibroglandular densities. MAMMOGRAM: Redemonstration of the multiple bilateral partially circumscribed obscured masses. Several of these appear to have layering calcium deposits compatible with benign cyst. These are unchanged when compared to the prior exam from 01/01/2023. There is no concerning developing abnormality within either breast. No distortion. Procedure Note Diana Go MD - 05/24/2024 EXAM: BILATERAL DIGITAL DIAGNOSTIC MAMMOGRAPHY WITH TOMOSYNTHESIS AND CAD Exam date: 05/24/2024 INDICATION: Follow-up probably benign similar-appearing bilateral breast masses likely representing cysts. COMPARISON: 08/27/2023, 02/18/2023, 01/01/2023, 08/02/2018, 07/14/2017 mammography. Correlation is made to the ultrasound 02/18/2023 and 01/27/2023. BREAST COMPOSITION: Scattered areas of fibroglandular densities. MAMMOGRAM: Redemonstration of the multiple bilateral partially circumscribed obscured masses. Several of these appear to have layering calcium deposits compatible with benign cyst. These are unchanged when compared to the prior exam from 01/01/2023. There is no concerning developing abnormality within either breast. No distortion. IMPRESSION: 1. Unchanged multiple similar-appearing bilateral breast masses likely representing cysts. RECOMMENDATION: Follow-up bilateral diagnostic mammography in one year to assess for change. Bilateral breast ultrasound may also be required. BI-RADS Category 3: Probably benign findings DICTATION LOCATION: [facility] Todd Oliver MD MAMMO ORDERABLES Abiola l Result from Last 3 Months or Most Recently Relevant to Health Maintenance Insurance Care Teams Operations Supervisor Chemical Cleaning Relationship Specialty [place] [address] [place] [address] PCP - General Family Practice 02/18/23
--- OUTSIDE RECORDS SUMMARY | 2025-05-28 07:29 | XMS_ITS | Patient Health Record ---
Author Organization [facility] Address [address] [facility] [address] [place] [address] Care Team Providers Care Analytical Sciences Director Name Role Phone Benito STERLING, Todd Primary Care Provider Eliezer FINN MD, BERYL Unavailable Reason For Referral No Information Plan Of Treatment Pending Test Test Name Order Date Colonoscopy 09/02/2018 Insurance Providers Payer Name Payer Address Payer Phone Subscriber Number Group Number Insured Name Patient Relationship to Insured Coverage Start Date Coverage End Date [employer] [address] [place], [place] [id number] Brittney Ni Self - patient is the insured
--- OUTSIDE RECORDS SUMMARY | 2025-05-28 07:29 | XMS_ITS ---
Author Organization [facility] ([address]) Address [address] [place] [address] Care Team Providers Care Thaw Shed Heater Tender Name Role Phone SaleemAlexx [phone] REASON FOR VISIT [facility] Weight [facility], on Tirzepatide, no side effects, appetite suppression is lasting 4-5 days. no new side effects, Desired weight loss: 30-40 lbs +0.4 lbs since last visit, -14.2 lbs total, No history MTC or MEN2 or pancreatitis, Concerned about future DM and OA Encounters Encounter Location Date Provider Diagnosis [facility] ([address]) [address] [place] [address] 09/14/2024 Alexx Monge Chronic fatigue, unspecified R53.82 [...] * Brittney WELSHDOB: [birth year] (59 yo F)Acc No.[id number]:09/14/2024 Weight Loss Patient: Brittney BORJA Provider: Leticia Monge MD :1965 A ge:59 Y S ex:Female Date:09/14/2024 Address:[address] [place] [address] Subjective: * Chief Complaints: * 1 . [...] Reid Monge MD, FAAAAI on 05/28/2025 at 07:29 AM CDT Sign off status: Pending * Provider: Leticia Monge MD Date: Generated for Printi ng/Fateeteeg/eTransmitting on: 05/28/2025 07:29 AM CDT
--- OUTSIDE RECORDS SUMMARY | 2025-05-28 07:29 | XMS_ITS | Clinical Summary ---
Author Organization [facility] Address [address] [place] [address] Care Team Providers Care Heel Seat Flap Stapler Name Role Phone Todd Oliver MD Primary Care Provider [phone]- [phone] Allergies Active Allergy Reactions Criticality Noted Date Comments Iodinated Contrast Media Hives Medium 11/11/2017 Morphine Itching,Swelling Medium Shellfish Containing Products Itching,Swelling Medium Shellfish Derived Itching,Swelling Medium Medications sertraline (ZOLOFT) 50 mg tablet take 1 tablet by oral route every day 0 0 3 Active Additional Information Patient taking differently: 100 mg, Reported on 12/29/2022 b complex vitamins tablet takes daily 0 0 5 Active omeprazole (PriLOSEC) 40 mg capsule take 1 capsule by oral route 2 times every day before a meal 0 0 5 Active Additional Information Patient not taking.Reported on 10/27/2021 lisinopril (PRINIVIL,ZESTR IL) 10 mg tablet Take 10 mg by mouth daily 0 9 Active metoprolol XL (TOPROL-XL) 25 mg 24 hr tablet Take 25 mg by mouth daily 1 9 Active cholecalciferol (VITAMIN D-3) 2000 unit tablet Take 2,000 Units by mouth daily Active tiZANidine (ZANAFLEX) 4 mg tablet Take 4 mg by mouth every 6 (six) hours as needed 0 Active atorvastatin (LIPITOR) 10 mg tablet Take 10 mg by mouth daily 0 Active estrogens, conjugated, (Premarin) vaginal cream APPLY 1/2 GRAM VAGINALLY TWICE WEEKLY NEEDED FOR DRYNESS 1 Active meloxicam (MOBIC) 15 mg tablet TAKE 1/2 TABLET - 1 TABLET DAILY. MAX DOSE IS 15 MG/24 HOURS. DO NOT TAKE WITH OTHER NSAIDS. 2 Active gabapentin (NEURONTIN) 800 mg tablet Take 1 tablet (800 mg total) by mouth 3 (three) times a day 270 tablet 3 3 Active eletriptan (RELPAX) 40 mg tablet Take 1 tablet (40 mg total) by mouth as needed for migraine 9 tablet 11 3 Active prochlorperazin e (COMPAZINE) 10 mg tabletIndicatio ns:Nausea and Vomiting Take 1 tablet (10 mg total) by mouth 3 (three) times a day as needed for nausea 30 tablet 5 3 Active Active Problems Problem Noted Date Diagnosed Date Migraine without aura and wi thout status migrainosus, not intractable 05/13/2017 Assessment & Plan (05/13/2017 10:45 AM CDT): Headaches are improving with treatment. Continue current treatment regimen. Advised to keep a headache diary. Counseled regarding lifestyle modifications. Take relpax as needed for headache. Given script for compazine 10 mg to be taken every 8 hours as needed for nausea. Instructed patient to take triptan early for best results at onset of headache. May repeat in 2 hours if needed. Maximum 2 doses in 24 hours. Avoid taking triptan greater than 3 days per week or 10 doses per month to prevent rebound headaches. Spinal stenosis of cervical region 04/23/2016 Degeneration of intervertebral disc of cervical region 01/22/2016 Cervical radiculopathy 01/20/2016 Atypical facial pain 08/15/2013 Overview (02/19/2017): Atypical facial pain Assessment & Plan (05/13/2017 10:46 AM CDT): She will continue to take Gabapentin 800mg TID. She will call if symptoms increase or she has side effects. Migraine 08/15/2013 Overview (02/19/2017): Migraine Surgical History Surgery Date Site/Laterality Comments SECTION HYSTERECTOMY Hysterectomy HERNIA REPAIR hernia surgery OTHER SURGICAL HISTORY tarsal tunnel surgery CERVICAL FUSION Cervical fusion CHOLECYSTECTOMY 11/15/2009 - 11/14/2010 Medical History Medical History Date Comments Hx Other Medical Headache, migra ine Hx Other Medical atypical facial pain Hx Other Medical shingles Hx Other Medical cervical disc d isease Hx Other Medical lumbar disc dis ease Hx Other Medical TMJ Migraine Hypertension 2019 Family History Medical History Relation Name Comments Cancer Father Otilio Avery Cancer Mother Priscilla Avery Heart disease Mother Priscilla Avery Hypertension Mother Priscilla Avery Parkinsonism Mother Priscilla Avery Parkinson's dis ease; Relation Name Status Comments Father Otilio Avery Mother Priscilla Avery Social History Tobacco Use Types Packs/Day Years Used Date Smoking Tobacco: Never Smokeless Tobacco: Never Alcohol Use Standard Drinks/Week Comments Yes 0 (1 standard drink = 0.6 oz pur e alcohol) rarely AUDIT-C Answer Date Recorded Q1: How often do you have a drink containing alc ohol? Monthly or less 12/29/2022 Q2: How many drinks containi ng alcohol do you have on a typical day when you are drinking? 1 or 2 12/29/2022 Q3: How often do you have si x or more drinks on one occasion? Never 12/29/2022 Comments Unknown Sex and Gender Information Value Date Recorded Sex Assigned at Not on file Legal Sex Female 2:36 AM HEAD AND NECK SURGEON Gender Identity Female 10/26/2020 8:06 AM HEAD AND NECK SURGEON Sexual Orientation Straight 10/26/2020 8: 06 AM HEAD AND NECK SURGEON Obstetrics History Last Filed Vital Signs Vital Sign Reading Time Taken Comments Blood Pressure 122/82 12/29/2022 1:21 PM HEAD AND NECK SURGEON Pulse 94 12/29/2022 1:21 PM HEAD AND NECK SURGEON Temperature - - Respiratory Rate 16 12/29/2022 1:21 PM HEAD AND NECK SURGEON Oxygen Saturation 97% 03/04/2016 11:50 AM CDT Inhaled Oxygen Concentration - - Weight 74.8 kg (165 lb) 12/29/2022 1:21 PM HEAD AND NECK SURGEON Height 157.5 cm (5' 2.01) 12/29/2022 1:21 PM CS T Body Mass Index 30.17 12/29/2022 1:21 PM HEAD AND NECK SURGEON Plan of Treatment Health Maintenance Due Date Last Done Comments Breast Cancer Screening-Mammogram 1965 Colon Cancer Screening-Colonoscopy 1965 Depression Screening 1965 Hepatitis C Screening 1965 DTaP/Tdap/Td Vaccine (1 - Tdap) 1974 Hepatitis B Screening 1981 Regular Well Visit/Exam 18-64 1981 Zoster Vaccine (1 of 2) 2013 Influenza Vaccine (Season Ended) 2025 08/11/2018, 08/31/2017 Pneumococcal vaccine <65 Aged Out No longer eligible based on patient's age to complete this topic Insurance [employer]OS [facility] Address: [address] [place] [address] [facility] CHOICE PLUS [facility] HMO/PPO Address: [address] [address] [place] [address] Care Teams Heel Seat Flap Stapler Relationship Specialty [place] [address] [address] PCP - General 04/01/17
--- OUTSIDE RECORDS SUMMARY | 2025-05-28 07:29 | XMS_ITS | Referral Summary ---
Author Organization [facility] Address [address] [place] [address] Care Team Providers Care Business Machine Operator Name Role Phone Todd Oliver MD Primary Care Provider +1- [phone] Allergies Active Allergy Reactions Criticality Noted Date [...] side effects. Migraine 08/15/2013 Overview (02/19/2017): Migraine Social History Tobacco Use Types Packs/Day Years [...] on file Legal Sex Female 2:36 AM COMMAND AND CONTROL Gender Identity Female 10/26/2020 8:06 AM COMMAND AND CONTROL Sexual Orientation Straight 10/26/2020 8: 06 AM COMMAND AND CONTROL Last Filed Vital Signs Vital Sign Reading Time Taken Comments Blood Pressure 122/82 12/29/2022 1:21 PM COMMAND AND CONTROL Pulse 94 12/29/2022 1:21 PM COMMAND AND CONTROL Temperature - - Respiratory Rate 16 12/29/2022 1:21 PM COMMAND AND CONTROL Oxygen Saturation 97% 03/04/2016 11:50 AM CDT Inhaled Oxygen Concentration - - Weight 74.8 kg (165 lb) 12/29/2022 1:21 PM COMMAND AND CONTROL Height 157.5 cm (5' 2.01) 12/29/2022 1:21 PM CS T Body Mass Index 30.17 12/29/2022 1:21 PM COMMAND AND CONTROL Plan of Treatment Not on file Insurance [email or web address] OOS Member Subscriber Plan / Payer (Ef fective 2022-Present) Name:Brittney Ni Relation to Subscriber:Self Name:Brittney Ni Payer ID:[id number] (NAIC) Type:[facility] Address: [facility] [id number] [place] [id number] [facility] CHOICE PLUS Care Teams Business Machine Operator Relationship Specialty [place] [address] [address] PCP - General 04/01/17
--- OUTSIDE RECORDS SUMMARY | 2025-05-28 07:29 | XMS_ITS | Patient Health Record ---
Author Organization [facility] [place] ([address]) Address [address] [place] [address] Care Team Providers Care Bearing Press Machine Operator Name Role Phone Alexx Monge Unavailable [phone] Allergies Allergen (clinical drug ingredient) Drug/Non Drug Allergy documented on EMR Reaction Allergy Type Onset Date Status CONTRAST DYE (uncoded) hives Allergy Active morphine Morphine hives Drug Allergy Active Reason For Referral No Information Medications Medication SIG (Take, Route, Frequency, Duration) Notes Start Date End Date Status Sertraline HCl 100 MG 1 tab(s) orally once a day; Duration: 30 day(s) 04/06/2024 Active Lisinopril 10 MG 1 tab(s) orally once a day; Duration: 30 day(s) 04/06/2024 Active Tirzepatide 10 MG/0.5 ML DIRECTED SUBCUTANEOUSLY ONCE A WEEK *Please review and pick correct strength-formulati on from Rock'n Roverspan options. If intended option is not shown, discontinue and re-order from Quick Search* Active SKINNER PELTS Thyroid 30 MG 1/2 tablet on an [...] a day; Duration: 30 day(s) 04/06/2024 Active Social History Tobacco Use: Social History Observation Description Date Details (start date - stop date) Never Smoker NA - NA Tobacco Control (Standard) Question Answer Notes Tobacco use: Nonsmoker Problems Problem Type SNOMED Code ICD Code Onset Dates Problem Status W/U Status Risk Notes Problem Hypothyroidism (76102455) Hypothyroidism, unspecified (E03.9) Active confirmed Problem Malaise (460138710) Other malaise (R53.81) Active confirmed Problem Chronic fatigue syndrome (disorder) (31027428) Chronic fatigue, unspecified (R53.82) Active confirmed Problem Fatigue (51397588) Other fatigue (R53.83) Active confirmed Problem Abnormal weight gain (877631588) Abnormal weight gain (R63.5) Active confirmed Vital Signs Height 61.9 in 09/07/2024 Weight 158.0 lbs 09/07/2024 BMI 28.99 kg/m2 09/07/2024 Encounters Encounter Location Date Provider Diagnosis [facility] ([address]) [address] [place] [address] 06/14/2024 Alexx Monge Chronic fatigue, unspecified R53.82 ; Abnormal weight gain R63.5 ; Other fatigue R53.83 and Other malaise R53.81 [facility] ([address]) [address] [place] [address] 06/22/2024 Alexx Monge Chronic fatigue, unspecified R53.82 ; Abnormal weight gain R63.5 ; Other fatigue R53.83 and Other malaise R53.81 [facility] ([address]) [address] [place] [address] 07/19/2024 Alexx Monge Chronic fatigue, unspecified R53.82 ; Abnormal weight gain R63.5 ; Other fatigue R53.83 and Other malaise R53.81 [facility] ([address]) [address] [place] [address] 07/26/2024 Alexx Monge Chronic fatigue, unspecified R53.82 ; Abnormal weight gain R63.5 ; Other fatigue R53.83 and Other malaise R53.81 [facility] ([address]) [address] [place] [address] 08/02/2024 Alexxcatalina Monge Chronic fatigue, unspecified R53.82 ; Abnormal weight gain R63.5 ; Other fatigue R53.83 and Other malaise R53.81 [facility] ([address]) [address] [place] [address] 08/24/2024 Alexx Win Chronic fatigue, unspecified R53.82 ; Abnormal weight gain R63.5 ; Other fatigue R53.83 and Other malaise R53.81 [facility] ([address]) [address] [place] [address] 08/31/2024 Alexx Win Chronic fatigue, unspecified R53.82 ; Abnormal weight gain R63.5 ; Other fatigue R53.83 and Other malaise R53.81 [facility] ([address]) [address] [place] [address] 09/07/2024 Alexx Saleem Chronic fatigue, unspecified R53.82 ; Abnormal weight gain R63.5 ; Other fatigue R53.83 and Other malaise R53.81 [facility] ([address]) [address] [place] [address] 05/31/2024 Alexx Win Chronic fatigue, unspecified R53.82 ; Abnormal weight gain R63.5 ; Other fatigue R53.83 and Other malaise R53.81 [facility] ([address]) [address] [place] [address] 06/08/2024 Alexx Win Chronic fatigue, unspecified R53.82 ; Abnormal weight gain R63.5 ; Other fatigue R53.83 and Other malaise R53.81 [facility] ([address]) [address] [place] [address] 06/28/2024 Alexx Win Chronic fatigue, unspecified R53.82 ; Abnormal weight gain R63.5 ; Other fatigue R53.83 and Other malaise R53.81 [facility] ([address]) [address] [place] [address] 06/28/2024 Alexx Monge Hypothyroidism, unspecified E03.9 [facility] ([address]) [address] [place] [address] 07/05/2024 Alexx Monge Chronic fatigue, unspecified R53.82 ; Abnormal weight gain R63.5 ; Other fatigue R53.83 and Other malaise R53.81 [facility] ([address]) [address] [place] [address] 07/12/2024 Alexx Monge Chronic fatigue, unspecified R53.82 ; Abnormal weight gain R63.5 ; Other fatigue R53.83 and Other malaise R53.81 [facility] ([address]) [address] [place] [address] 08/17/2024 Alexx Monge Chronic fatigue, unspecified R53.82 ; Abnormal weight gain R63.5 ; Other fatigue R53.83 and Other malaise R53.81 Assessments Encounter Date Diagnosis (ICD Code) Assessment Notes Treatment Notes Treatment Clinical Notes Section Notes 05/31/2024 Chronic fatigue, unspecified (ICD-10 - R53.82) 05/31/2024 Abnormal weight gain (ICD-10 - R63.5) 06/08/2024 Chronic fatigue, unspecified (ICD-10 - R53.82) 06/08/2024 Abnormal weight gain (ICD-10 - R63.5) 06/14/2024 Chronic fatigue, unspecified (ICD-10 - R53.82) 06/14/2024 Abnormal weight gain (ICD-10 - R63.5) 06/22/2024 Chronic fatigue, unspecified (ICD-10 - R53.82) 06/22/2024 Abnormal weight gain (ICD-10 - R63.5) 06/28/2024 Chronic fatigue, unspecified (ICD-10 - R53.82) 06/28/2024 Abnormal weight gain (ICD-10 - R63.5) 06/28/2024 Hypothyroidism, unspecified (ICD-10 - E03.9) See RT consultation. 1. Start ADK10, Pure encapsulations B complex BID, Omega3 1 BID 2. Start SKINNER PELTS Thyroid as above, recheck T3 in 6 weeks 3. Considering TRT and estrogen. Given endometriosis, will need progesterone. 4. Consider Fatty15, Curcumin, Polyphenols (prebiotic), PE Nitric Oxide Ultra 5. Consider Vascanox, Arterosil. Follow-up in 6 weeks. 07/05/2024 Chronic fatigue, unspecified (ICD-10 - R53.82) 07/05/2024 Abnormal weight gain (ICD-10 - R63.5) 07/12/2024 Chronic fatigue, unspecified (ICD-10 - R53.82) 07/12/2024 Abnormal weight gain (ICD-10 - R63.5) 07/19/2024 Chronic fatigue, unspecified (ICD-10 - R53.82) 07/19/2024 Abnormal weight gain (ICD-10 - R63.5) 07/26/2024 Chronic fatigue, unspecified (ICD-10 - R53.82) 07/26/2024 Abnormal weight gain (ICD-10 - R63.5) 08/02/2024 Chronic fatigue, unspecified (ICD-10 - R53.82) 08/02/2024 Abnormal weight gain (ICD-10 - R63.5) 08/17/2024 Chronic fatigue, unspecified (ICD-10 - R53.82) 08/17/2024 Abnormal weight gain (ICD-10 - R63.5) 08/24/2024 Chronic fatigue, unspecified (ICD-10 - R53.82) 08/24/2024 Abnormal weight gain (ICD-10 - R63.5) 08/31/2024 Chronic fatigue, unspecified (ICD-10 - R53.82) 08/31/2024 Abnormal weight gain (ICD-10 - R63.5) 09/07/2024 Chronic fatigue, unspecified (ICD-10 - R53.82) 09/07/2024 Abnormal weight gain (ICD-10 - R63.5) 09/07/2024 Other fatigue (ICD-10 - R53.83) 08/31/2024 Other fatigue (ICD-10 - R53.83) 08/24/2024 Other fatigue (ICD-10 - R53.83) 08/17/2024 Other fatigue (ICD-10 - R53.83) 08/02/2024 Other fatigue (ICD-10 - R53.83) 07/26/2024 Other fatigue (ICD-10 - R53.83) 07/19/2024 Other fatigue (ICD-10 - R53.83) 07/12/2024 Other fatigue (ICD-10 - R53.83) 07/05/2024 Other fatigue (ICD-10 - R53.83) 06/28/2024 Other fatigue (ICD-10 - R53.83) 06/22/2024 Other fatigue (ICD-10 - R53.83) 06/14/2024 Other fatigue (ICD-10 - R53.83) 06/08/2024 Other fatigue (ICD-10 - R53.83) 05/31/2024 Other fatigue (ICD-10 - R53.83) 05/31/2024 Other malaise (ICD-10 - R53.81) 06/08/2024 Other malaise (ICD-10 - R53.81) 06/14/2024 Other malaise (ICD-10 - R53.81) 06/22/2024 Other malaise (ICD-10 - R53.81) 06/28/2024 Other malaise (ICD-10 - R53.81) 07/05/2024 Other malaise (ICD-10 - R53.81) 07/12/2024 Other malaise (ICD-10 - R53.81) 07/19/2024 Other malaise (ICD-10 - R53.81) 07/26/2024 Other malaise (ICD-10 - R53.81) 08/02/2024 Other malaise (ICD-10 - R53.81) 08/17/2024 Other malaise (ICD-10 - R53.81) 08/24/2024 Other malaise (ICD-10 - R53.81) 08/31/2024 Other malaise (ICD-10 - R53.81) 09/07/2024 Other malaise (ICD-10 - R53.81) Plan Of Treatment Pending Test Test Name Order Date T3, FREE 06/28/2024 HRT Female Pre Pellet 04/13/2024 Medical (General) History Medical History History ICD Code Essential (primary) hypertension I10 Anxiety disorder, unspecified F41.9 Dysthymic disorder F34.1
[2025-05-28 08:33] LABS: Alanine Aminotransferase 28 U/L (6-35); Albumin Level 4.3 g/dL (3.5-5.1); Alkaline Phosphatase 75 U/L (38-126); Anion Gap 9 mmol/L (4-12); Aspartate Amino Transferase 25 U/L (14-36); Bilirubin,Total 0.5 mg/dL (0.2-1.3); Blood Urea Nitrogen 15 mg/dL (7-17); Calcium 9.3 mg/dL (8.4-10.2); Carbon Dioxide 23 mmol/L (22-30); Chloride 106 mmol/L (98-107); Cholesterol 230 mg/dL (0-200); Estimated Glomerular Filt Rate > 60; Glucose 90 mg/dL (65-110); HDL Direct 61 mg/dL; Potassium 4.3 mmol/L (3.4-5.0); Sodium 138 mmol/L (137-145); Total Protein 7.1 g/dL (6.3-8.2); Triglycerides 137 mg/dL (<150)
== END 2025-05-28 07:24 | disposition home or self-care (01) ==
LOC: ANHLAB 07:26
PROVIDERS: PCP Family Medicine; Visit Provider Family Medicine
DX: E78.2 Mixed hyperlipidemia (principal); I10 Essential (primary) hypertension
CPT/HCPCS: 36415; 80053; 80061

== ENCOUNTER 2025-07-08 10:49 | Emergency (ER) | payer OTHER, SELFPAY ==
--- OUTSIDE RECORDS SUMMARY | 2024-08-31 03:15 | XMS_ITS ---
Author Organization [facility] [place] ([address]) Address [address] [facility] [address] [place] [address] Care Team Providers Care Washing Machine Assembler Name Role Phone Alexx Monge Unavailable [phone] REASON FOR VISIT [facility], on Tirzepatide, no side effects, appetite suppression is lasting 3-4 days. no new side effects, Desired weight loss: 30-40 lbs, -0.2 lbs lbs since last visit, -14.6 lbs total, No history MTC or MEN2 or pancreatitis, Concerned about future DM and OA Medications Medication SIG (Take, Route, Frequency, Duration) Notes Start Date End Date Status PRESSROOM SUPERVISOR Thyroid 30 MG 1/2 tablet on an [...] Provider Diagnosis [facility] - [facility] [place] ([address]) [address] [place] [address] 08/31/2024 Alexx Monge Chronic fatigue, unspecified R53.82 [...] abdomen Frequency: weekly Lot Number/Expiration: Medication Source: [facility] [employer] Adverse Reaction: None Progress Notes * Brittney WELSHDOB: [birth year] (60 yo F)Acc No.[id number]:08/31/2024 Weight Loss Patient: Brittney BORJA Provider: Leticia Monge MD :1965 A ge:59 Y S ex:Female Date:08/31/2024 Address:[address] [place] [address] Subjective: * Chief Complaints: * 1 . [...] tab(s) orally once a day , Taking PRESSROOM SUPERVISOR Thyroid 30 MG Tablet 1/2 tablet on [...] ot Number/Expiration 0 M edication Source H [facility] A dverse Reaction N one * Follow Up: 1 Week (Reason: GLP-1 Agonist Administration. GLP-1 Agonist Administration) * Billing Information: * Visit Code: * Procedure Codes: * Electronic signature of Patr ick Win , MD, FAAAAI on 07/08/2025 at 10:52 AM CDT Sign off status: Pending * Provider: Leticia Monge MD Date: Generated for Vianey cantrell/Honey/Raegan on: 0 07/08/2025 10:52 AM CDT
--- OUTSIDE RECORDS SUMMARY | 2024-09-07 03:30 | XMS_ITS ---
Author Organization [facility] [place] ([address]) Address [address] [facility] [address] [place] [address] Care Team Providers Care Environmental Health Physician Name Role Phone Alexx Monge Unavailable [phone] REASON FOR VISIT [facility], [...] discontinue and re-order from Quick Search* Active PILLOW FILLER Thyroid 30 MG 1/2 tablet on an [...] Provider Diagnosis [facility] [place] ([address]) [address] [place] [address] 09/07/2024 Alexx Monge Chronic fatigue, unspecified R53.82 [...] * Brittney WELSHDOB: [birth year] (60 yo F)Acc No.[id number]:09/07/2024 Weight Loss Patient: Brittney BORJA Provider: Leticia Monge MD :1965 A ge:59 Y S ex:Female Date:09/07/2024 Address:[address] [place], [place] [phone] Subjective: * Chief Complaints: * 1 . [...] tab(s) orally once a day , Taking PILLOW FILLER Thyroid 30 MG Tablet 1/2 tablet on [...] signature of Reid Monge MD, FAAAAI on 07/08/2025 at 10:52 AM CDT Sign off status: Pending * Provider: Leticia Monge MD Date: 1 Generated for Vianey cantrell/Honey/Raegan on: 0 07/08/2025 10:52 AM CDT
--- OUTSIDE RECORDS SUMMARY | 2024-09-14 03:30 | XMS_ITS ---
Author Organization Formerly [facility] [place] ([address]) Address [address] [place] [phone] Care Team Providers Care Service Delivery Consultant Name Role Phone SaleemAlexx [phone] REASON FOR VISIT [facility], on Tirzepatide, no side effects, appetite suppression is lasting 4-5 days. no new side effects, Desired weight loss: 30-40 lbs +0.4 lbs since last visit, -14.2 lbs total, No history MTC or MEN2 or pancreatitis, Concerned about future DM and OA Encounters Encounter Location Date Provider Diagnosis [facility] [place] ([address]) [address] [place] [address] 09/14/2024 Alexx Monge Chronic fatigue, unspecified R53.82 ; Abnormal weight gain R63.5 ; Other fatigue R53.83 and Other malaise R53.81 Assessments Encounter Date Diagnosis (ICD Code) Assessment Notes Treatment Notes Treatment Clinical Notes Section Notes 09/14/2024 Chronic fatigue, unspecified (ICD-10 - R53.82) 09/14/2024 Abnormal weight gain (ICD-10 - R63.5) 09/14/2024 Other fatigue (ICD-10 - R53.83) 09/14/2024 Other malaise (ICD-10 - R53.81) Plan Of [...] * Brittney WELSHDOB: [birth year] (60 yo F)Acc No.[id number]:09/14/2024 Weight Loss Patient: Brittney BORJA Provider: Leticia Monge MD :1965 A ge:59 Y S ex:Female Date:09/14/2024 Address:[address] [place] [address] Subjective: * Chief Complaints: * 1 . [facility], on Tirzepatide, no side effects, appetite suppression is lasting 4-5 days. no new side effects. 2. Desired weight loss: 30-40 lbs +0.4 lbs since last visit, -14.2 lbs total. 3. No history MTC or MEN2 or pancreatitis. 4. Concerned about future DM and OA. * Medical History: Objective: * Vitals: Assessment: * Assessment: 1. A bnormal weight [...] Provider: Leticia Monge MD Date: Generated for Printi ng/Faxing/eTransmitting on: 0 07/08/2025 10:52 AM CDT
--- NOTE | 2025-07-08 10:52 | ED.URI ---
HPI - URI/Sore Throat General Chief Complaint: Upper Respiratory Infection Stated Complaint: Upper Respiratory Infection patient presents to Express Care with complaints of nasal congestion, nasal discharge, sinus pain, sore throat, lymph node swelling on the left side, pain in both ears and fatigue that began about 4 days ago. Patient has been using Zyrtec, Tylenol, ibuprofen for relief of symptoms. Does get the hospital with a known sick contacts. Denies fever, chills, body aches, dizziness, drainage from ears, difficulty swallowing, shortness of breath, vomiting or diarrhea Related Data Home Medications ?Medication ?Instructions ?Recorded ?Confirmed ?Last Taken ?Type atorvastatin 10 mg tablet 10 mg DIRECTED 12/22/23 09/28/24 Unknown History gabapentin 800 mg tablet 800 mg DIRECTED 12/22/23 09/28/24 Unknown History lisinopril 10 mg tablet 10 mg DIRECTED 12/22/23 09/28/24 Unknown History metoprolol succinate 25 mg 25 mg PO DIRECTED 12/22/23 07/08/25 Unknown History tablet,extended release 24 hr sertraline 100 mg tablet (Zoloft) 100 mg PO DAILY 07/27/24 07/08/25 Unknown History estradiol 0.01% (0.1 mg/gram) vaginal 07/08/25 Unknown History vaginal cream losartan 25 mg tablet mg 07/08/25 Unknown History Allergies Allergy/AdvReac Type Severity Reaction Status Date / Time morphine Allergy Mild Hives / Verified 07/08/25 10:51 Red Face iohexol (From contrast - CT, Allergy Hives Verified 07/08/25 10:51 X-RAY) SEAFOOD-N & V Allergy Unknown HIVES Uncoded 07/08/25 10:51 Review of Systems Constitutional: Constitutional: Reports as per HPI, Denies chills, Reports fatigue, Denies fever(s) and Denies weakness Eyes: Eyes: Reports no additional eye complaints ENT: Reports as per HPI, Denies vertigo, Denies dizziness, Reports nasal congestion and Reports sore throat Cardiovascular: Cardiovascular: Reports no additional cardiovascular complaints Respiratory: Respiratory: Reports as per HPI, Reports chest congestion, Reports cough, Denies dyspnea and Denies wheezing Gastrointestinal: Gastrointestinal: Reports as per HPI, Denies diarrhea, Reports nausea and Denies vomiting Musculoskeletal: Musculoskeletal: Reports no additional musculoskeletal complaints Integumentary/Breasts: Skin/Breast: Reports as per HPI, Denies erythema and Denies rash Neurologic: Reports as per HPI, Denies vertigo, Denies dizziness, Reports headache(s) and Denies weakness Psychiatric: Psychiatric: Reports no additional psychiatric complaints Endocrine: Endocrine: Reports no additional endocrine complaints Hematologic/Lymphatic: Hematologic/Lymphatic: Reports no additional hematologic/lymphatic complaints Allergic/Immunologic: Allergic/Immunologic: Reports no additional allergic/immunologic complaints PMFSH Family History Family History Unknown Lung disease Hypertension Cerebrovascular accident High cholesterol Social History Social History Smoking status: Never smoker Alcohol intake: current Alcohol use details: 2 drinks per month Exam Const: General: healthy appearing and no acute distress Nutritional Appearance: well nourished Orientation/consciousness: patient oriented x3 Limitations: no limitations HENMT: Head: normal to inspection Ears: external ears normal and TM's abnormal bilaterally Face/Nose/Sinus: Normal external nose present and nares abnormal Face and sinus: normal facial exam and sinus tenderness ( bilateral) maxillary Mouth: Yes Normal oral and palatal mucosa present and Yes moist mucous membranes Throat: posterior oropharynx abnormal Other: right TM mild bulging, dullness, diffuse erythema bilateral nares, minimal erythema posterior pharynx no edema or exudate Neck: Neck: normal visual inspection and lymphadenopathy ( left anterior cervical) Resp: Effort & Inspection: normal respiratory effort Auscultation: clear to auscultation bilaterally Cardio: Rate: regular rate Rhythm: regular rhythm Skin: General skin exam: normal color Rashes: no rashes Wounds: no wounds Neuro: General: patient oriented x3 Speech: normal speech Gait exam (Neuro): Normal gait present Psych: Mental Status: mental status grossly normal Affect: normal affect Attitude: cooperative Course Course Level of Care: Express Care Visit Vital Signs Vital signs: Vital Signs Temperature 98.3 F 07/08/25 10:55 Pulse Rate 108 H 07/08/25 10:55 Respiratory Rate 18 07/08/25 10:55 Blood Pressure 154/87 H 07/08/25 10:55 Pulse Oximetry 98 07/08/25 10:55 Oxygen Delivery Room Air 07/08/25 10:55 Temperature 98.3 F 07/08/25 10:55 Pulse Rate 108 H 07/08/25 10:55 Respiratory Rate 18 07/08/25 10:55 Blood Pressure 154/87 H 07/08/25 10:55 Pulse Oximetry 98 07/08/25 10:55 Oxygen Delivery Room Air 07/08/25 10:55 MDM - URI/Sore Throat MDM Narrative Medical decision making narrative: right AOm noted, will start augmentin due to sinus symptoms. The patient was evaluated by myself in the [facility] care. History is obtained from patient who is an independent historian and physical exam was performed. Available medical records were reviewed at this time. Exam findings show no acute concerns or changes; patient is non-toxic appearing and is in no distress. Patient is appropriate for outpatient treatment and follow-up. I have evaluated and discussed social determinants of health with the patient that could potentially impact subsequent diagnosis and treatment plans. Differential diagnosis and treatment plan were discussed with the patient. Patient agrees with discussion and after shared medical decision making agrees with plan of care. All questions were answered to the patient's satisfaction. Differential Diagnosis Differential diagnosis: Likely upper respiratory infection, otitis media, sinusitis, influenza and pharyngitis Medical Records Attestation: I reviewed the patient's medical records. Lab Data Lab results narrative: patient declines labs Discharge Plan Discharge Clinical Impression: Sinusitis, Acute otitis media, right Patient Disposition: Home Condition: Stable Instructions: Antibiotic Form, Sinusitis (ED), Warm Compress or Soak (ED) Additional Instructions: take the antibiotics until gone Recommend antihistamine such as Benadryl at night time and Claritin/Zyrtec/Fawn during the day. Also using steroid nasal spray like Flonase can help with symptoms and congestion. Using sudafed for significant congestion will also give some relief. Cough syrup may cause drowsiness; avoid driving or take it at night time. Also, recommend symptomatic treatment includes: rest, fluids, increase humidity of the air at home. Recommend Acetaminophen or nonsteroidal anti-inflammatory agents(NSAIDs) as directed in the bottle to reduce fever and/pain/headache. Avoid smoking/second-hand smoke. Limit visits to areas with large crowds. Frequent hand washing or hand consumer attorney is one of the best ways to prevent spread of infection. Please schedule a followup visit with your personal physician for further evaluation and treatment within 3-5days. Including recheck and discussion of your blood pressure. If your symptoms persist, change or worsen significantly before you can contact your personal physician then please, without delay, go to the emergency department for further evaluation. Patient Language: Czech Prescriptions: New amoxicillin-pot clavulanate 875-125 mg tablet 1 tablet PO Q12H Qty: 20 0RF No Action losartan 25 mg tablet estradiol 0.01 % (0.1 mg/gram) cream VAGINAL atorvastatin 10 mg tablet 10 mg DIRECTED gabapentin 800 mg tablet 800 mg DIRECTED lisinopril 10 mg tablet 10 mg DIRECTED metoprolol succinate 25 mg tablet extended release 24 hr 25 mg PO DIRECTED sertraline [Zoloft] 100 mg tablet 100 mg PO DAILY Follow-up/Referrals: Benito,Todd Marinelli MD [Primary Care Provider] Stand Alone Forms: Work/School Release IP Time of Disposition: 11:11
--- OUTSIDE RECORDS SUMMARY | 2025-07-08 10:52 | XMS_ITS | Encounter Summary ---
Author Organization [facility] Address [address] [place] [address] Care Team Providers Care Commercial Loan Specialist Name Role Phone Todd Oliver MD Primary Care Provider +1- [phone] Encounter Details Date Type Department Care Team (Late Contact Info) Description 12/26/2023 OncoHoldingshart Message Enc [facility] Family & Internal [facility] [address] [place] [address] [place] [address] [place] [address] Sleep Study Social History Tobacco Use Types Packs/Day Years Used Date Smoking Tobacco: Never Smokeless Tobacco: Never Comments:non smoker Alcohol Use Standard Drinks/Week Comments Yes 0 (1 standard drink = 0.6 oz pur e alcohol) rare PHQ-2 Answer Date Recorded Patient Health Questionnaire-2 Score 0 03/05/2023 Education Answer Date Recorded What is the highest level of school you have completed or the highest degree you have received? Associate degree: occupational, technical, or vocational program 06/15/2019 Comments No Sex and Gender Information Value Date Recorded Sex Assigned at Not on file Legal Sex Female 4:08 PM CDT Gender Identity Not on file Sexual Orientation Not on file Occupation Industry Job Start Date Job End Date Not on file Not on file Not on file Not on file documented as of this encounter Plan of Treatment Upcoming Encounters Date Type Department Care Team (Late Contact Info) Description 10/18/2025 7:00 AM SYSTEM AUDITOR Office Visit [facility] Family & Internal Medicine [facility] [address] [place] [address] [place] [address] [place] [address] documented as of this encounter Visit Diagnoses Not on filedocumented in this encounter Additional Health Concerns Assessment Noted Time PHQ-9 Depression Total Score: 1 03/05/20 23 7:08 AM CDT documented as of this encounter Care Teams Commercial Loan Specialist Relationship Specialty [place] [address] [place] [address] PCP - General FAMILY PRACTICE 06/15/19 documented as of this encounter
--- OUTSIDE RECORDS SUMMARY | 2025-07-08 10:52 | XMS_ITS | Encounter Summary ---
Author Organization [facility] Address [address] [place] [address] Care Team Providers Care Stock Preparer Name Role Phone Todd Oliver MD Primary Care Provider +1- [phone] Encounter Details Date Type Department Care Team (Late Contact Info) Description 04/11/2021 SputnikBot Message Enc [facility] Family & Internal Medicine [address] [address] [facility] Provider Referral Social History Tobacco Use Types Packs/Day Years Used Date Smoking Tobacco: Never Smokeless Tobacco: Never Alcohol Use Standard Drinks/Week Comments Yes 0 (1 standard drink = 0.6 oz pur e alcohol) PHQ-2 Answer Date Recorded PHQ-2 Score - If the patient scores above 3, please move on to questions 3-9 1 04/11/2021 Education Answer Date Recorded What is the [...] file Not on file Not on file COVID-19 Exposure Response Date Recorded In the last month, have you been in contact with someone who was confirmed or suspected to have Coronavirus / COVID-19? No / Unsure 04/11/2021 9:53 AM CDT documented as of this encounter Plan of Treatment Upcoming Encounters Date Type Department Care Team (Late st Contact Info) Description 10/18/2025 7:00 AM GOLF COURSE MECHANIC Office Visit [facility] Group Family & Internal Medicine - [place] [address] [place] [address] [place] [address] [place], [place] [id number] documented as of this encounter Visit Diagnoses Not on filedocumented in this encounter Care Teams Stock Preparer Relationship Specialty [place] [address] [place] [address] PCP - General FAMILY PRACTICE 06/15/19 documented as of this encounter
--- OUTSIDE RECORDS SUMMARY | 2025-07-08 10:52 | XMS_ITS | Patient Health Record ---
Author Organization [employer] [facility] [facility] [place] ([address]) Address [address] [place] [address] Care Team Providers Care Wet Process Miller Head Name Role Phone Alexx Monge Unavailable [phone] Allergies Allergen (clinical drug ingredient) Drug/Non Drug [...] review and pick correct strength-formulati on from [employer] options. If intended option is not shown, discontinue and re-order from Quick Search* Active CASH POSTING REPRESENTATIVE Thyroid 30 MG 1/2 tablet on an [...] Status W/U Status Risk Notes Problem Hypothyroidism (24244272) Hypothyroidism, unspecified (E03.9) Active confirmed Problem Malaise (657742763) Other malaise (R53.81) Active confirmed Problem Chronic fatigue syndrome (disorder) (54426013) Chronic fatigue, unspecified (R53.82) Active confirmed Problem Fatigue (43883828) Other fatigue (R53.83) Active confirmed Problem Abnormal weight gain (884680337) Abnormal weight gain (R63.5) Active confirmed Vital Signs Height 61.9 in 09/07/2024 Weight 158.0 lbs 09/07/2024 BMI 28.99 kg/m2 09/07/2024 Encounters Encounter Location Date Provider Diagnosis [facility] ([address]) [address] [place] [address] 07/26/2024 Alexx Monge Chronic fatigue, unspecified R53.82 ; Abnormal weight gain R63.5 ; Other fatigue R53.83 and Other malaise R53.81 [facility] ([address]) [address] [place] [address] 07/19/2024 Alexx Monge Chronic fatigue, unspecified R53.82 ; Abnormal weight gain R63.5 ; Other fatigue R53.83 and Other malaise R53.81 [facility] ([address]) [address] [place] [address] 08/17/2024 Alexx Monge Chronic fatigue, unspecified R53.82 ; Abnormal weight gain R63.5 ; Other fatigue R53.83 and Other malaise R53.81 [facility] ([address]) [address] [place] [address] 07/12/2024 Alexx Monge Chronic fatigue, unspecified R53.82 ; Abnormal weight gain R63.5 ; Other fatigue R53.83 and Other malaise R53.81 [facility] ([address]) [address] [place] [address] 09/07/2024 Alexx Monge Chronic fatigue, unspecified R53.82 ; Abnormal weight gain R63.5 ; Other fatigue R53.83 and Other malaise R53.81 [facility] ([address]) [address] [place] [address] 08/31/2024 Alexx Monge Chronic fatigue, unspecified R53.82 ; Abnormal weight gain R63.5 ; Other fatigue R53.83 and Other malaise R53.81 [facility] ([address]) [address] [place] [address] 08/24/2024 Alexx Monge Chronic fatigue, unspecified R53.82 ; Abnormal weight gain R63.5 ; Other fatigue R53.83 and Other malaise R53.81 [facility] ([address]) [address] [place] [address] 08/02/2024 Alexx Monge Chronic fatigue, unspecified R53.82 ; Abnormal weight gain R63.5 ; Other fatigue R53.83 and Other malaise R53.81 Assessments Encounter Date Diagnosis (ICD Code) Assessment Notes Treatment Notes Treatment Clinical Notes Section Notes 07/12/2024 Chronic fatigue, unspecified (ICD-10 - R53.82) [...] R53.83) 07/12/2024 Other fatigue (ICD-10 - R53.83) 07/12/2024 Other malaise (ICD-10 - R53.81) 07/19/2024 [...]
--- OUTSIDE RECORDS SUMMARY | 2025-07-08 10:52 | XMS_ITS | Clinical Summary ---
Author Organization [facility] Address [address] [place] [address] Care Team Providers Care Shareholder Name Role Phone Todd Oliver MD Primary Care Provider Allergies Active Allergy Reactions Criticality Noted Date Comments Iodine Hives,Vomiting High 12/02/2020 Morphine Itching,Swelling Medium Shellfish-Derived Products Hives Medium 7 Medications B Complex Tab takes daily 10/03/20 15 Active vitamin D3, cholecalciferol, 1000 UNIT Tab tablet Take 1 tablet (25 mcg total) by mouth daily. 01/22/20 17 Active prochlorperazine 10 MG tablet Take 1 tablet (10 mg total) by mouth as needed. 05/04/20 19 Active eletriptan (RELPAX) 40 MG tabletIndications: Migraine without aura and without status migrainosus, not intractable Take 1 tablet (40 mg total) by mouth as needed. 30 tablet 1 09/24/20 23 Active predniSONE (DELTASONE) 20 MG tabletIndications: Tendonitis Take two tablets once a day for five days 10 tablet 04/17/20 25 Active tiZANidine (ZANAFLEX) 4 MG tabletIndications: Muscle spasm Take 1 tablet (4 mg total) by mouth every 6 (six) hours as needed. 90 tablet 1 06/19/20 25 Active sertraline (ZOLOFT) 100 MG tabletIndications: Recurrent major depressive disorder, in partial remission Take 1 tablet (100 mg total) by mouth daily. 90 tablet 1 06/19/20 25 Active metoprolol succinate ER (TOPROL-XL) 25 MG 24 hr tabletIndications: Essential hypertension Take 1 tablet (25 mg total) by mouth daily. 90 tablet 1 06/19/20 25 Active losartan (COZAAR) 25 MG tabletIndications: Essential hypertension Take 1 tablet (25 mg total) by mouth daily. 90 tablet 1 06/19/20 25 Active gabapentin (NEURONTIN) 800 MG tabletIndications: Arthritis Take 1 tablet (800 mg total) by mouth daily. 90 tablet 1 06/19/20 25 Active estradiol (ESTRACE) 0.1 MG/GM vaginal creamIndications:V aginal dryness Place 2 g vaginally 2 (two) times a week. 42.5 g 1 06/21/20 25 Active atorvastatin (LIPITOR) 10 MG tabletIndications: Mixed hyperlipidemia Take 1 tablet (10 mg total) by mouth daily. 90 tablet 1 06/19/20 25 Active tiZANidine (ZANAFLEX) 4 MG tabletIndications: Muscle spasm Take 1 tablet (4 mg total) by mouth every 6 (six) hours as needed. 90 tablet 03/23/20 25 025 Discontin ued(Reord er) sertraline (ZOLOFT) 100 MG tabletIndications: Recurrent major depressive disorder, in partial remission Take 1 tablet (100 mg total) by mouth daily. 90 tablet 03/23/20 25 025 Discontin ued(Reord er) metoprolol succinate ER (TOPROL-XL) 25 MG 24 hr tabletIndications: Essential hypertension Take 1 tablet (25 mg total) by mouth daily. 90 tablet 03/23/20 25 025 Discontin ued(Reord er) losartan (COZAAR) 25 MG tabletIndications: Essential hypertension Take 1 tablet (25 mg total) by mouth daily. 90 tablet 03/23/20 25 025 Discontin ued(Reord er) gabapentin (NEURONTIN) 800 MG tabletIndications: Arthritis Take 1 tablet (800 mg total) by mouth daily. 270 tablet 03/23/20 25 025 Discontin ued(Reord er) estradiol (ESTRACE) 0.1 MG/GM vaginal creamIndications:V aginal dryness Place 2 g vaginally 2 (two) times a week. 42.5 g 03/26/20 25 025 Discontin ued(Reord er) atorvastatin (LIPITOR) 10 MG tabletIndications: Mixed hyperlipidemia Take 1 tablet (10 mg total) by mouth daily. 90 tablet 03/23/20 25 025 Discontin ued(Reord er) Active Problems Problem Noted Date Diagnosed Date Acquired hypothyroidism 08/27/2024 Class 1 obesity due to exces s calories with serious comorbidity and body mass index (BMI) of 32.0 to 32.9 in adult 06/17/2022 Essential hypertension 07/23/2019 Palpitations 07/23/2019 Mixed hyperlipidemia 07/23/2019 Thrombosed external hemorrhoids 09/28/2017 Migraine without aura and wi thout status migrainosus, not intractable 05/13/2017 Overview (07/19/2019): Last Assessment & Plan: Headaches are improving with treatment. Continue current [...] doses per month to prevent rebound headaches. Depression 02/08/2017 Generalized anxiety disorder 01/21/2017 Trigeminal neuralgia 01/21/2017 Spinal stenosis of cervical region 04/23/2016 Degeneration of intervertebral disc of cervical region 01/22/2016 Atypical facial pain 08/15/2013 Overview (07/19/2019): Overview: Atypical facial pain Last Assessment & Plan: She will continue to take Gabapentin 800mg TID. She will call if symptoms increase or she has side effects. Resolved Problems Problem Noted Date Diagnosed Date Resolved Date DOMITILA (generalized anxiety disorder) 01/15/2022 03/05/2023 Acute bronchitis with bronchospasm 05/05/2018 07/23/2019 Hemorrhoid 10/25/2017 07/23/2019 Visit for screening mammogram 01/21/2017 07/26/2020 Muscle spasm 01/21/2017 07/23/2019 Skin lesion of left leg 01/21/2017 04/2 11/2022 Unknown and unspecified causes of morbidity 08/15/2013 03/05/2023 Overview (07/19/2019): Overview: Migraine Encounters Date Type Department Care Team Description 06/19/2025 Telephone [facility] Family & Internal Medicine [address] [address] Todd Oliver MD Medication Request 05/28/2025 Scan HEALTH INFO SRVCS Scanned, Doc [facility] Lab (SCAN) 04/17/2025 7:40 AM CDT Office Visit [facility] Family & Internal Medicine [address] [address] Todd Oliver MD Follow Up; Hypertension; Hand Pain (Pt c/o right thumb and wrist pain ); Ankle Pain (Right ankle pain ) 04/17/2025 Travel from Last 3 Months Immunizations Immunization Administration Dates Next Due Hepatitis A (Generic) 08/03/2017 Hepatitis A (Havrix [address]) 08/24/2019 Influenza (Generic) 08/11/2018,08/31/2017 Influenza Adult (Generic) 09/04/2023 PFIZER COVID-19 (ORIGINAL FO RMULATION, PURPLE CAP) mRNA, LNP-S, PF, 30 MCG/0.3 ML DOSE 08/21/2021,12/16/2020,11/25/2020 Tdap (Generic) 04/14/2023 Typhoid (Typhim ) 08/18/2018 Family History Medical History Relation Comments Cancer Father Diabetes Maternal Grandfather Heart Disease Maternal Grandfather Cancer Mother Heart Disease Mother Hypertension Mother Parkinson's Disease Mother Relation Status Comments Father Maternal Grandfather Mother Social History Tobacco Use Types Packs/Day Years Used Date Smoking Tobacco: Never Smokeless Tobacco: Never Tobacco Cessation:Counseling Given: No Comments:non smoker Alcohol Use Standard Drinks/Week Comments Yes 0 (1 standard drink = 0.6 oz pur e alcohol) rare PHQ-2 Answer Date Recorded Patient Health Questionnaire-2 Score 0 02/17/2024 Education Answer Date Recorded What is the [...] file Not on file Not on file Last Filed Vital Signs Vital Sign Reading Time Taken Comments Blood Pressure 142/88 04/17/2025 8:15 AM CDT Pulse 81 04/17/2025 7:39 AM CDT Temperature 36.6 C (97.8 F) 04/17/2025 7:39 AM CDT Respiratory Rate 16 04/17/2025 7:39 AM CDT Oxygen Saturation 97% 04/17/2025 7:39 AM CDT Inhaled Oxygen Concentration - - Weight 73.5 kg (162 lb) 04/17/2025 7:39 AM CDT Height 157.5 cm (5' 2) 04/17/2025 7:39 AM CDT Body Mass Index 29.63 04/17/2025 7:39 AM CDT Plan of Treatment Upcoming Encounters Date Type Department Care Team (Late st Contact Info) Description 10/18/2025 7:00 AM SCUTCHER TENDER Office Visit [facility] Family & Internal Medicine - [place] [address] [place] [address] [place] [id number] [place] [address] Health Maintenance Due Date Last Done Comments Hepatitis C 1981 Pneumococcal Vaccine: 50+ Years (1 of 1 - PCV) 2013 Zoster Vaccines (1 of 2) 2013 Colorectal Cancer Screening Colonoscopy (10 Years) 09/29/2023 09/29/2018, COVID-19 Vaccine ( season) 2024 08/21/2021, 12/16/2020, 11/25/2020 PHQ-2 (Physician [place]) 11/15/2024 02/17/2024 Annual Physical 08/24/2025 08/24/2024, 04/2 11/2022, 01/13/2022 Mammogram Screening 05/24/2026 05/24/2024, 05/24/2024, 08/27/2023, Additional history exists DTaP, Tdap and Td Vaccines (2 - Td or Tdap) 04/14/2033 04/14/2023 RSV Immunization or 60+ Years (1 - 1-dose 75+ series) 2038 Meningococcal B Vaccine Aged Out No l onger eligible based on patient's age to complete this topic Meningococcal Vaccine Aged Out No emily douglas eligible based on patient's age to complete this topic RSV Immunizations Under 20 Months Aged Out No longer eligible based on patient's age to complete this topic Procedures Procedure Name Priority Date/Time Associated Diagnosis Comments OUTSIDE LAB (SCAN ORDER) 05/28/2025 MAMMOGRAM GENERIC (SCAN ORDER) 05/24/2024 COLONOSCOPY GENERIC (SCAN ORDER) Routine 09/29/2018 from Last 3 Months or Most Recently Relevant to Health Maintenance Results * OUTSIDE LAB (SCAN ORDER) (05/28/2025) 05/28/2025 [facility] Scanned SCANNING Final Resu lt * MAMMOGRAM GENERIC (SCAN ORDER) (05/24/2024) Anatomical Region Laterality Modality Other 05/24/2024 [facility] Scanned SCANNING Final Resu lt * COLONOSCOPY (09/29/2018) us Documents Scanned SCANNING Final Result [facility] [address] [address] from Last 3 Months or Most Recently Relevant to Health Maintenance Insurance [employer] [facility] Member Subscriber Plan / Payer (Ef fective 2023-Present) Name:Last Rbittney Relation to Subscriber:Self Name:Brittney Ni Payer ID:[id number] (NA) Type:Indemnity Address: [address] Care Teams Shareholder Relationship Specialty [place] [address] [place] [address] PCP - General FAMILY PRACTICE 06/15/19
--- OUTSIDE RECORDS SUMMARY | 2025-07-08 10:52 | XMS_ITS | Encounter Summary ---
Author Organization [facility] Address [address] [place] [address] Care Team Providers Care Gas Generator Operator Name Role Phone Todd Oliver MD Primary Care Provider +1- [phone] Encounter Details Date Type Department Care Team (Late Contact Info) Description 09/16/2024 TVTYhart Message Enc [facility] Family & Internal Medicine [facility] [address] [place] [address] [place] [address] [place] [address] RX Social History Tobacco Use Types Packs/Day Years [...] (Late Contact Info) Description 10/18/2025 7:00 AM VENEER TAPER Office Visit [facility] Family & Internal Medicine - [place] [address] [place] [address] [place] [address] [place] [address] documented as of this encounter Visit Diagnoses Not on filedocumented in this encounter Additional Health Concerns Assessment Noted Time PHQ-9 Depression Total Score: 1 03/05/20 23 7:08 AM CDT documented as of this encounter Care Teams Gas Generator Operator Relationship Specialty [place] [address] [place] [address] PCP - General FAMILY PRACTICE 06/15/19 documented as of this encounter
--- OUTSIDE RECORDS SUMMARY | 2025-07-08 10:52 | XMS_ITS | Encounter Summary ---
Author Organization [facility] Address [address] [place] [address] Care Team Providers Care Rn Hemodialysis Charge Name Role Phone Todd Oliver MD Primary Care Provider +1- [phone] Encounter Details Date Type Department Care Team (Latest Contact Info) Description 09/20/2018 Abstract [facility] Group Myriam Song MD Social History Tobacco Use Types Packs/Day Years Used Date Smoking Tobacco: Never Assessed Comments Unknown Sex and Gender Information Value Date Recorded Sex Assigned at Not on file Legal Sex Female 4:08 PM CDT Gender Identity Not on file Sexual Orientation Not on file documented as of this encounter Plan of Treatment Upcoming Encounters Date Type Department Care Team (Late st Contact Info) Description 10/18/2025 7:00 AM MEDICAL CASH POSTER Office Visit [facility] Medical [facility] Family & Internal Medicine [facility] [address] [place] [address] [place] [address] [place] [address] documented as of this encounter Visit Diagnoses Not on filedocumented in this encounter Care Teams Rn Hemodialysis Charge Relationship Specialty [place] [address] [place] [address] PCP - General FAMILY PRACTICE 06/15/19 documented as of this encounter
--- OUTSIDE RECORDS SUMMARY | 2025-07-08 10:52 | XMS_ITS | Encounter Summary ---
Author Organization [facility] Address [address] [place] [address] Care Team Providers Care Debrander Name Role Phone Todd Oliver MD Primary Care Provider +1- [phone] Encounter Details Date Type Department Care Team (Late st Contact Info) Description 01/14/2023 [facility] Message Enc [facility] Medical Group Family & Internal Medicine [facility] [address] [place] [address] Arelis Hanson FNP-BC [address] [place] [address] [facility] US order Social History Tobacco Use Types Packs/Day Years Used Date Smoking Tobacco: Never Smokeless Tobacco: Never Comments:non smoker Alcohol Use Standard Drinks/Week Comments Yes 0 (1 standard drink = 0.6 oz pur e alcohol) rare PHQ-2 Answer Date Recorded PHQ-2 Score - If the patient scores above 3, please move on to questions 3-9 0 01/13/2022 Education Answer Date Recorded What is the [...] on file documented as of this encounter Progress Notes * KEYLA Espinosa - 01/18/2023 6:35 PM CST There is a duplicate task on this where I asked to call brittney to clarify. Yes please order ultrasound. Please see if diagnostic mammogram is needed as well. Sorry about the duplication. [facility] * Gayla Perez RN - 01/15/2023 3:38 PM CST Okay for bilateral breast US? What dx code? [facility] * Soledad Lloyd RN - 01/15/2023 3:03 PM CST . [facility] * Vickie Garcia - 01/15/2023 2:58 PM CST [facility] called and they need an order for this patient's to have an U/S of her breast. Fx# [phone] [facility] [employer] documented in this encounter Plan of Treatment Upcoming Encounters Date Type Department Care Team (Late st Contact Info) Description 10/18/2025 7:00 AM ADJUSTER PIANO ACTION Office Visit [facility] Group Family & Internal Medicine [facility] [address] [place] [address] [place] [address] [place] [address] documented as of this encounter Visit Diagnoses Not on filedocumented in this encounter Additional Health Concerns Assessment Noted Time PHQ-9 Depression Total Score: 0 01/14/20 22 11:15 AM ADJUSTER PIANO ACTION documented as of this encounter Care Teams Debrander Relationship Specialty [place] [address] [place], [place] [id number] PCP - General FAMILY PRACTICE 06/15/19 documented as of this encounter
--- OUTSIDE RECORDS SUMMARY | 2025-07-08 10:52 | XMS_ITS | Encounter Summary ---
Author Organization [facility] Address [address] [place] [address] Care Team Providers Care Industrial Court Magistrate Name Role Phone Todd Oliver MD Primary Care Provider +1- [phone] Encounter Details Date Type Department Care Team (Late Contact Info) Description 01/19/2023 [employer] Message Enc [facility] Medical Group Family & Internal Medicine [facility] [address] [place] [address] Arelis Hanson, [facility] [address] [place] [address] Mammogram results Social History Tobacco Use Types Packs/Day Years [...] st Contact Info) Description 10/18/2025 7:00 AM CUSTOMER SUPPORT TECHNICIAN Office Visit [facility] Medical Group Family & Internal Medicine [facility] [address] [place] [address] [place] [address] [place] [address] documented as of this encounter Visit Diagnoses Not on filedocumented in this encounter Additional Health Concerns Assessment Noted Time PHQ-9 Depression Total Score: 0 01/14/20 22 11:15 AM CUSTOMER SUPPORT TECHNICIAN documented as of this encounter Care Teams Industrial Court Magistrate Relationship Specialty [place] [address] [place] [address] PCP - General FAMILY PRACTICE 06/15/19 documented as of this encounter
--- OUTSIDE RECORDS SUMMARY | 2025-07-08 10:52 | XMS_ITS | Encounter Summary ---
Author Organization [facility] Address [address] [place] [address] Care Team Providers Care Sales Project Administrator Name Role Phone Todd Oliver MD Primary Care Provider +1- [phone] Encounter Details Date Type Department Care Team (Late Contact Info) Description 03/16/2024 Spectafyhart Message Enc [facility] Family & Internal Medicine [facility] [address] [place] [address] [place] [address] [place] [address] Diagnostic mammogram follow up Social History Tobacco Use Types Packs/Day Years [...] (Late Contact Info) Description 10/18/2025 7:00 AM DISBURSEMENT CLERK Office Visit [facility] Family & Internal Medicine [facility] [address] [place] [address] [place] [address] [place] [address] documented as of this encounter Visit Diagnoses Not on filedocumented in this encounter Additional Health Concerns Assessment Noted Time PHQ-9 Depression Total Score: 1 03/05/20 23 7:08 AM CDT documented as of this encounter Care Teams Sales Project Administrator Relationship Specialty [place] [address] [place] [address] PCP - General FAMILY PRACTICE 06/15/19 documented as of this encounter
--- OUTSIDE RECORDS SUMMARY | 2025-07-08 10:52 | XMS_ITS | Encounter Summary ---
Author Organization [facility] Address [address] [place] [address] Care Team Providers Care Journeyman Operator Assistant Name Role Phone Todd Oliver MD Primary Care Provider +1- [phone] Encounter Details Date Type Department Care Team (Late st Contact Info) Description 09/26/2018 Abstract [facility] [address] [place] [address] , Generic ConversionMD Social History Tobacco Use Types Packs/Day Years [...] st Contact Info) Description 10/18/2025 7:00 AM FISH INSPECTOR Office Visit [facility] Family & Internal Medicine [facility] [address] [place] [address] [place] [address] [place], [place] [id number] documented as of this encounter Visit Diagnoses Not on filedocumented in this encounter Care Teams Journeyman Operator Assistant Relationship Specialty [place] [address] [place] [address] PCP - General FAMILY PRACTICE 06/15/19 documented as of this encounter
--- OUTSIDE RECORDS SUMMARY | 2025-07-08 10:53 | XMS_ITS | Clinical Summary ---
Author Organization [facility] Address [address] [place] [address] Phone Care Team Providers Care Offset Press Assistant Name Role Phone Todd Oliver MD [...] (2023-2 5 season) 2024 08/21/2021, 12/16/2020, 11/25/2020 Preventative Visit- Commercial 11/15/2024 03/05/2023 , 01/13/2022 BREAST CANCER SCREENING 05/24/2025 05/24/20, 08/27/2023, 02/18/2023, [...] Category 3: Probably benign findings DICTATION LOCATION: [facility] Todd Oliver MD MAMMO ORDERABLES Abiola l Result from Last 3 Months or Most Recently Relevant to Health Maintenance Insurance Care Teams Offset Press Assistant Relationship Specialty [place] [address] [place] [address] PCP - General Family Practice 02/18/23
--- OUTSIDE RECORDS SUMMARY | 2025-07-08 10:53 | XMS_ITS | Patient Health Record ---
Author Organization [facility] Address [address] [facility] [address] [place] [address] Care Team Providers Care Cuprous Chloride Helper Name Role Phone Benito STERLING, Todd Primary Care Provider Eliezer FINN MD, BERYL Unavailable Reason For Referral No Information Plan Of Treatment Pending Test Test Name Order Date Colonoscopy 09/02/2018 Insurance Providers Payer Name Payer Address Payer Phone Subscriber Number Group Number Insured Name Patient Relationship to Insured Coverage Start Date Coverage End Date [employer] [address] [place], [place] [id number] Brittney Ni Self - patient is the insured
--- OUTSIDE RECORDS SUMMARY | 2025-07-08 10:53 | XMS_ITS | Clinical Summary ---
Author Organization [facility] Address [address] [place] [address] Care Team Providers Care Project Facilitator Name Role Phone Todd Oliver MD Primary Care Provider +1- [phone] Allergies Active Allergy Reactions Criticality Noted Date [...] on file Legal Sex Female 2:36 AM LOGISTICS OFFICER Gender Identity Female 10/26/2020 8:06 AM LOGISTICS OFFICER Sexual Orientation Straight 10/26/2020 8: 06 AM LOGISTICS OFFICER Obstetrics History Last Filed Vital Signs Vital Sign Reading Time Taken Comments Blood Pressure 122/82 12/29/2022 1:21 PM LOGISTICS OFFICER Pulse 94 12/29/2022 1:21 PM LOGISTICS OFFICER Temperature - - Respiratory Rate 16 12/29/2022 1:21 PM LOGISTICS OFFICER Oxygen Saturation 97% 03/04/2016 11:50 AM CDT Inhaled Oxygen Concentration - - Weight 74.8 kg (165 lb) 12/29/2022 1:21 PM LOGISTICS OFFICER Height 157.5 cm (5' 2.01) 12/29/2022 1:21 PM CS T Body Mass Index 30.17 12/29/2022 1:21 PM LOGISTICS OFFICER Plan of Treatment Health Maintenance Due Date Last Done Comments Breast Cancer Screening-Mammogram 1963 Colon Cancer Screening-Colonoscopy 1963 Depression Screening 1963 Hepatitis C Screening 1963 DTaP/Tdap/Td Vaccine (1 - Tdap) 1974 Hepatitis B Screening 1981 Regular Well Visit/Exam 18-64 1981 Zoster Vaccine (1 of 2) 2013 Influenza Vaccine (#1) 2025 8, 08/31/2017 Pneumococcal vaccine <65 Aged Out No longer eligible based on patient's age to complete this topic Insurance [employer] [facility] Address: [address] [place] [address] [facility] Care Teams Project Facilitator Relationship Specialty [place] [address] [address] [address] PCP - General 04/01/17
[2025-07-08 10:55] VITALS: BP 154/87; PULSE 108; RESP 18; TEMP 36.8; O2SAT 98
== END 2025-07-08 11:13 | disposition home or self-care (01) ==
PROVIDERS: Emergency Provider Nurse Practitioner Family; PCP Family Medicine
DX: J32.9 Chronic sinusitis, unspecified (principal); H66.91 Otitis media, unspecified, right ear
CPT/HCPCS: 99213; G0463

== ENCOUNTER 2025-08-27 16:49 | Emergency (ER) | payer OTHER, SELFPAY ==
--- OUTSIDE RECORDS SUMMARY | 2024-08-24 03:00 | XMS_ITS ---
Author Organization [facility] [place] ([address]) Address [address] [facility] [address] [place] [address] Care Team Providers Care Top Screw Name Role Phone Alexx Monge Unavailable [phone] REASON FOR VISIT [facility], on Tirzepatide, no side effects, appetite suppression is lasting 3-4 days. no new side effects, Desired weight loss: 30-40 lbs, - 2.8lbs lbs since last visit, -14.4 lbs total, No history MTC or MEN2 or pancreatitis, Concerned about future DM and OA Medications Medication SIG (Take, Route, Frequency, Duration) Notes Start Date End Date Status Metoprolol Tartrate 25 MG 1 tab(s) orally [...] a day; Duration: 30 day(s) 04/06/2024 Active POLISHER BRASS Thyroid 30 MG 1/2 tablet on an empty stomach x 1 week, then 1 full tablet on an empty stomach thereafter, as tolerated Orally Once a day; Duration: 30 days Take 15 mg daily x 1 week, then 30 mg thereafter, as tolerated. 06/28/2024 Active Tirzepatide 10 MG/0.5 ML DIRECTED SUBCUTANEOUSLY ONCE A WEEK *Please review and pick correct strength-formulati on from Medispan options. If intended option is not shown, discontinue and re-order from Quick Search* Active Vital Signs Height 61.9 in 08/24/2024 Weight 157.8 lbs 08/24/2024 BMI 28.95 kg/m2 08/24/2024 Encounters Encounter Location Date Provider Diagnosis [facility] [place] ([address]) [address] [place] [address] 08/24/2024 Alexx Monge Chronic fatigue, unspecified R53.82 ; Abnormal weight gain R63.5 ; Other fatigue R53.83 and Other malaise R53.81 Assessments Encounter Date Diagnosis (ICD Code) Assessment Notes Treatment Notes Treatment Clinical Notes Section Notes 08/24/2024 Chronic fatigue, unspecified (ICD-10 - R53.82) 08/24/2024 Abnormal weight gain (ICD-10 - R63.5) 08/24/2024 Other fatigue (ICD-10 - R53.83) 08/24/2024 Other malaise (ICD-10 - R53.81) Plan Of Treatment Next Appt Details Follow Up: 1 Week, Reason: G LP-1 Agonist Administration. GLP-1 Agonist Administration Procedure Notes * Category Sub-Category Detail Notes [facility]: Weight Management tirzepatide Indication: weig ht loss Concentration: 10 mg/mL Volume Administered: 0.25 mL Dose Administered: 2.5 mg Route: SQ Location: Right abdomen Frequency: weekly Lot Number/Expiration: Medication Source: [facility] Adverse Reaction: None Progress Notes * Brittney WELSHDOB: [birth year] (60 yo F)Acc No.[id number]:08/24/2024 Weight Loss Patient: Brittney BORJA Provider: Leticia Monge MD :1965 A ge:59 Y S ex:Female Date:08/24/2024 Address:[address] [place], [place] [phone] Subjective: * Chief Complaints: * 1 . [facility], on Tirzepatide, no side effects, appetite suppression is lasting 3-4 days. no new side effects. 2. Desired weight loss: 30-40 lbs, - 2.8lbs lbs since last visit, -14.4 lbs total. 3. No history MTC or [...] tab(s) orally once a day , Taking POLISHER BRASS Thyroid 30 MG Tablet 1/2 tablet on an empty stomach x 1 week, then 1 full tablet on an empty stomach thereafter, as tolerated Orally Once a day , Notes to Pharmacist: Take 15 mg daily x 1 week, then 30 mg thereafter, as tolerated. Objective: * Vitals: H t: 61.9 in, Wt: 157.8 lbs, BMI:28.95Index. Assessment: * Assessment: 1. A bnormal weight [...] ot Number/Expiration 0 M edication Source [facility] A dverse Reaction N one * Follow Up: 1 Week (Reason: GLP-1 Agonist Administration. GLP-1 Agonist Administration) * Billing Information: * Visit Code: * Procedure Codes: * Electronic signature of Reid Monge MD, FAAAAI on 08/27/2025 at 04:54 PM CDT Sign off status: Pending * Provider: Leticia Monge MD Date: 1 Generated for Vianey cantrell/Honey/Raegan on: 04:54 PM CDT
--- OUTSIDE RECORDS SUMMARY | 2024-08-31 03:15 | XMS_ITS ---
Author Organization [facility] [place] ([address]) Address [address] [facility] [address] [place] [address] Care Team Providers Care Senior Manager Quality Assurance Name Role Phone Alexx Monge Unavailable [phone] REASON FOR VISIT [facility], on Tirzepatide, no side effects, appetite suppression is lasting 3-4 days. no new side effects, Desired weight loss: 30-40 lbs, -0.2 lbs lbs since last visit, -14.6 lbs total, No history MTC or MEN2 or pancreatitis, Concerned about future DM and OA Medications Medication SIG (Take, Route, Frequency, Duration) Notes Start Date End Date Status TRADER FIXED INCOME Thyroid 30 MG 1/2 tablet on an [...] discontinue and re-order from Quick Search* Active Lisinopril 10 MG 1 tab(s) orally once a day; Duration: 30 day(s) 04/06/2024 Active Vital Signs Height 61.9 in 08/31/2024 Weight 157.6 lbs 08/31/2024 BMI 28.92 kg/m2 08/31/2024 Encounters Encounter Location Date Provider Diagnosis [facility] - [facility] [place] ([address]) [address] [place] [address] 08/31/2024 Alexx Monge Chronic fatigue, unspecified R53.82 ; Abnormal weight gain R63.5 ; Other fatigue R53.83 and Other malaise R53.81 Assessments Encounter Date Diagnosis (ICD Code) Assessment Notes Treatment Notes Treatment Clinical Notes Section Notes 08/31/2024 Chronic fatigue, unspecified (ICD-10 - R53.82) 08/31/2024 Abnormal weight gain (ICD-10 - R63.5) 08/31/2024 Other fatigue (ICD-10 - R53.83) 08/31/2024 Other malaise (ICD-10 - R53.81) Plan Of Treatment Next Appt Details Follow Up: 1 Week, Reason: G LP-1 Agonist Administration. GLP-1 Agonist Administration Procedure Notes * Category Sub-Category Detail Notes [facility]: Weight Management tirzepatide Indication: weig ht loss Concentration: 10 mg/mL Volume Administered: 0.3 mL Dose Administered: 3 mg Inadequate appet ite or food noise suppression, Increase dosing due to lack of perceived benefit Route: SQ Location: Left abdomen Frequency: weekly Lot Number/Expiration: Medication Source: [facility] [employer] [facility] Adverse Reaction: None Progress Notes * Brittney WELSHDOB: [birth year] (60 yo F)Acc No.[id number]:08/31/2024 Weight Loss Patient: Brittney BORJA Provider: Leticia Monge MD :1965 A ge:59 Y S ex:Female Date:08/31/2024 Address:[address] [place] [address] Subjective: * Chief Complaints: * 1 . [facility], on Tirzepatide, no side effects, appetite suppression is lasting 3-4 days. no new side effects. 2. Desired weight loss: 30-40 lbs, -0.2 lbs lbs since last visit, -14.6 lbs total. 3. No history MTC or [...] tab(s) orally once a day , Taking TRADER FIXED INCOME Thyroid 30 MG Tablet 1/2 tablet on an empty stomach x 1 week, then 1 full tablet on an empty stomach thereafter, as tolerated Orally Once a day , Notes to Pharmacist: Take 15 mg daily x 1 week, then 30 mg thereafter, as tolerated. Objective: * Vitals: H t: 61.9 in, Wt: 157.6 lbs, BMI:28.92Index. Assessment: * Assessment: 1. A bnormal weight gain - R63.5 (Primary) 2 . C hronic fatigue, unspecified - R53.82 3 . O ther fatigue - R53.83 4 . O ther malaise - R53.81 Plan: * Treatment: * Procedures: Q uell: Weight Management: tirzepatide I ndication w eight loss C oncentration 1 0 mg/mL V olume Administered 0 .3 mL D ose Administered 3 mg Inadequate appetite or food noise suppression, Increase dosing due to lack of perceived benefit R oute S Q L ocation L eft abdomen F requency w eekly L ot Number/Expiration 0 M edication Source H [facility] A dverse Reaction N one * Follow Up: 1 Week (Reason: GLP-1 Agonist Administration. GLP-1 Agonist Administration) * Billing Information: * Visit Code: * Procedure Codes: * Electronic signature of Patr ick Win , MD, FAAAAI on 08/27/2025 at 04:54 PM CDT Sign off status: Pending * Provider: Leticia Monge MD Date: 1 Generated for Vianey cantrell/Honey/Raegan on: 04:54 PM CDT
--- OUTSIDE RECORDS SUMMARY | 2024-09-07 03:30 | XMS_ITS ---
Author Organization [facility] [place] ([address]) Address [address] [facility] [address] [place] [address] Care Team Providers Care Laundry Washer Name Role Phone Alexx Monge Unavailable [phone] REASON FOR VISIT [facility], [...] discontinue and re-order from Quick Search* Active SECURITY SPECIALIST Thyroid 30 MG 1/2 tablet on an [...] Provider Diagnosis [facility] [place] ([address]) [address] [place] [phone] 09/07/2024 Alexx Monge Chronic fatigue, unspecified R53.82 [...] * Brittney WELSHDOB: [birth year] (60 yo F)Acc No.[id number]:09/07/2024 Weight Loss Patient: Brittney BORJA Provider: Leticia Monge MD :1965 A ge:59 Y S ex:Female Date:09/07/2024 Address:[address] [place], [place] [phone] Subjective: * Chief Complaints: * 1 . [...] tab(s) orally once a day , Taking SECURITY SPECIALIST Thyroid 30 MG Tablet 1/2 tablet on [...] MD Date: Generated for Vianey cantrell/Honey/Raegan on: 04:54 PM CDT
--- OUTSIDE RECORDS SUMMARY | 2024-09-14 03:30 | XMS_ITS ---
Author Organization [facility] [place] ([address]) Address [address] [place] [phone] Care Team Providers Care Dental Resident Name Role Phone SaleemAlexx [phone] REASON FOR VISIT [facility], on Tirzepatide, no side effects, appetite suppression is lasting 4-5 days. no new side effects, Desired weight loss: 30-40 lbs +0.4 lbs since last visit, -14.2 lbs total, No history MTC or MEN2 or pancreatitis, Concerned about future DM and OA Encounters Encounter Location Date Provider Diagnosis [facility] [place] ([address]) [address] [place] [address] 09/14/2024 Alexx Monge Chronic fatigue, unspecified R53.82 [...] * Brittney WELSHDOB: [birth year] (60 yo F)Acc No.[id number]:09/14/2024 Weight Loss Patient: Brittney BORJA Provider: Leticia Monge MD :1965 A ge:59 Y S ex:Female Date:09/14/2024 Address:[address] [place] [address] Subjective: * Chief Complaints: * 1 . [...] MD Date: Generated for Printi ng/Faxing/eTransmitting on: 04:54 PM CDT
--- NOTE | ~2025-08-27 | XR_ITS ---
EXAMINATION: XR hand RT min 3V, 08/27/2025 17:08 CDT HISTORY: right hand-thumb/index finger pain/fall COMPARISON: No comparisons available. Findings: No acute fracture or malalignment. Moderate degenerative changes Soft tissues unremarkable. Impression: No acute fracture or malalignment. Reviewed, dictated and finalized at location P. Impression: No acute fracture or malalignment.
--- NOTE | ~2025-08-27 | XR_ITS ---
CORRECTED REPORT addendum added J[facility] 08/30/25 This report was recreated on 08/30/25. Original report was ADDENDUM No acute fracture or dislocation. XR wrist RT min 3V INDICATION: radial wrist pain-fall . COMPARISON: None. FINDINGS: Frontal, lateral and oblique views of the right wrist were obtained. No acute fracture is seen. IMPRESSION: No acute fracture or dislocation.
--- OUTSIDE RECORDS SUMMARY | 2025-08-27 16:54 | XMS_ITS | Encounter Summary ---
Author Organization [facility] Address [address] [place] [address] Care Team Providers Care Welt Wheeler Name Role Phone Todd Oliver MD Primary Care Provider +1- [phone] Encounter Details Date Type Department Care Team (Latest Contact Info) Description 09/20/2018 Abstract [facility] Myriam Song MD Social History [...] st Contact Info) Description 10/18/2025 7:00 AM RUBBER MOLDER Office Visit [facility] Medical [facility] Family & Internal Medicine [facility] [address] [place] [address] [place] [address] [place] [address] documented as of this encounter Visit Diagnoses Not on filedocumented in this encounter Care Teams Welt Wheeler Relationship Specialty [place] [address] [place] [address] PCP - General FAMILY PRACTICE 06/15/19 documented as of this encounter
--- OUTSIDE RECORDS SUMMARY | 2025-08-27 16:54 | XMS_ITS | Patient Health Record ---
Author Organization [facility] [employer] [facility] [employer] [facility] ([address]) Address [address] [place] [address] Care Team Providers Care Licensed Nuclear Operator Name Role Phone Alexx Monge Unavailable [phone] Allergies Allergen (clinical drug ingredient) Drug/Non Drug [...] review and pick correct strength-formulati on from [employer] options. If intended option is not shown, discontinue and re-order from Quick Search* Active HAND DRAWER IN HELPER Thyroid 30 MG 1/2 tablet on an [...] Status W/U Status Risk Notes Problem Hypothyroidism (66559558) Hypothyroidism, unspecified (E03.9) Active confirmed Problem Malaise (213125830) Other malaise (R53.81) Active confirmed Problem Chronic fatigue syndrome (disorder) (78790766) Chronic fatigue, unspecified (R53.82) Active confirmed Problem Fatigue (39271698) Other fatigue (R53.83) Active confirmed Problem Abnormal weight gain (554484079) Abnormal weight gain (R63.5) Active confirmed Vital Signs Height 61.9 in 09/07/2024 Weight 158.0 lbs 09/07/2024 BMI 28.99 kg/m2 09/07/2024 Encounters Encounter Location Date Provider Diagnosis [facility] ([address]) [address] [place] [address] 09/07/2024 Alexx Monge Chronic fatigue, unspecified R53.82 ; Abnormal weight gain R63.5 ; Other fatigue R53.83 and Other malaise R53.81 [facility] ([address]) [address] [place] [address] 08/31/2024 Alexx Monge Chronic fatigue, unspecified R53.82 [...] R53.83) 08/31/2024 Other fatigue (ICD-10 - R53.83) 08/31/2024 Other malaise (ICD-10 - R53.81) 09/07/2024 Other malaise (ICD-10 - R53.81) Plan Of Treatment Pending Test Test Name Order Date T3, FREE 06/28/2024 HRT Female Pre Pellet 04/13/2024 Medical (General) History Medical History History ICD Code Essential (primary) hypertension I10 Anxiety disorder, unspecified F41.9 Dysthymic disorder F34.1
--- OUTSIDE RECORDS SUMMARY | 2025-08-27 16:54 | XMS_ITS | Encounter Summary ---
Author Organization [facility] Address [address] [place] [address] Care Team Providers Care Occupational Therapy Supervisor Name Role Phone Todd Oliver MD Primary Care Provider +1- [phone] Encounter Details Date Type Department Care Team (Late st Contact Info) Description 09/26/2018 Abstract [facility] [address] [place] [address] , Generic ConversionMD Social History Tobacco Use [...] st Contact Info) Description 10/18/2025 7:00 AM HUMAN RESOURCES TECHNICIAN Office Visit [facility] Family & Internal Medicine [facility] [address] [place] [address] [place] [address] [place], [place] [address] documented as of this encounter Visit Diagnoses Not on filedocumented in this encounter Care Teams Occupational Therapy Supervisor Relationship Specialty [place] [address] [place] [address] PCP - General FAMILY PRACTICE 06/15/19 documented as of this encounter
--- OUTSIDE RECORDS SUMMARY | 2025-08-27 16:54 | XMS_ITS | Encounter Summary ---
Author Organization [facility] Address [address] [place] [address] Care Team Providers Care Rim Roller Operator Name Role Phone Todd Oliver MD Primary Care Provider +1- [phone] Encounter Details Date Type Department Care Team (Late Contact Info) Description 01/19/2023 Recovery Technology Solutionst Message Enc [facility] Family & Internal Medicine [facility] [address] [place] [address] Arelis Hanson, [facility] [address] [place] [address] Mammogram results Social History Tobacco [...] st Contact Info) Description 10/18/2025 7:00 AM PROGRAM DIRECTOR CABLE TELEVISION Office Visit [facility] Medical Group Family & Internal Medicine [facility] [address] [place] [address] [place] [address] [place] [address] documented as of this encounter Visit Diagnoses Not on filedocumented in this encounter Additional Health Concerns Assessment Noted Time PHQ-9 Depression Total Score: 0 01/14/20 22 11:15 AM PROGRAM DIRECTOR CABLE TELEVISION documented as of this encounter Care Teams Rim Roller Operator Relationship Specialty [place] [address] [place] [address] PCP - General FAMILY PRACTICE 06/15/19 documented as of this encounter
--- OUTSIDE RECORDS SUMMARY | 2025-08-27 16:54 | XMS_ITS | Encounter Summary ---
Author Organization [facility] Address [address] [place] [address] Care Team Providers Care Public Health Staff Nurse Name Role Phone Todd Oliver MD Primary Care Provider +1- [phone] Encounter Details Date Type Department Care Team (Late Contact Info) Description 04/11/2021 SilkStart Message Enc [facility] Medical Group Family & Internal Medicine [address] [address] [facility] Provider Referral Social History Tobacco Use Types [...] st Contact Info) Description 10/18/2025 7:00 AM TOBACCO PRIZER Office Visit [facility] Family & Internal Medicine - [place] [address] [place] [address] [place] [address] [place], [place] [id number] documented as of this encounter Visit Diagnoses Not on filedocumented in this encounter Care Teams Public Health Staff Nurse Relationship Specialty [place] [address] [place] [address] PCP - General FAMILY PRACTICE 06/15/19 documented as of this encounter
--- OUTSIDE RECORDS SUMMARY | 2025-08-27 16:54 | XMS_ITS | Encounter Summary ---
Author Organization [facility] Address [address] [place] [address] Care Team Providers Care Irrigation Installation Specialist Name Role Phone Todd Oliver MD Primary Care Provider +1- [phone] Encounter Details Date Type Department Care Team (Late Contact Info) Description 09/16/2024 TrialBeehart Message Enc [facility] Family & Internal Medicine [facility] [address] [place] [address] [place] [address] [place] [address] RX Social History Tobacco Use [...] (Late Contact Info) Description 10/18/2025 7:00 AM ADMITTING CLERK Office Visit [facility] Family & Internal Medicine [facility] [place] [address] [place] [address] [place] [address] [place] [address] documented as of this encounter Visit Diagnoses Not on filedocumented in this encounter Additional Health Concerns Assessment Noted Time PHQ-9 Depression Total Score: 1 03/05/20 23 7:08 AM CDT documented as of this encounter Care Teams Irrigation Installation Specialist Relationship Specialty [place] [address] [place] [address] PCP - General FAMILY PRACTICE 06/15/19 documented as of this encounter
--- OUTSIDE RECORDS SUMMARY | 2025-08-27 16:54 | XMS_ITS | Clinical Summary ---
Author Organization [facility] Address [address] [place] [address] Care Team Providers Care Professor Of Communication Arts Name Role Phone Todd Oliver MD Primary Care Provider Allergies Active Allergy Reactions Criticality Noted Date Comments Iodine Hives,Vomiting High 12/02/2020 Morphine Itching,Swelling Medium Shellfish-Derived Products Hives Medium 7 Medications B Complex Tab takes daily 5 Active vitamin D3, cholecalciferol, 1000 UNIT Tab tablet Take 1 tablet (25 mcg total) by mouth daily. 7 Active prochlorperazine 10 MG tablet Take 1 tablet (10 mg total) by mouth as needed. 9 Active eletriptan (RELPAX) 40 MG tabletIndications: Migraine without aura and without status migrainosus, not intractable Take 1 tablet (40 mg total) by mouth as needed. 30 tablet 1 3 Active predniSONE (DELTASONE) 20 MG tabletIndications: Tendonitis Take two tablets once a day for five days 10 tablet 5 Active tiZANidine (ZANAFLEX) 4 MG tabletIndications: Muscle spasm Take 1 tablet (4 mg total) by mouth every 6 (six) hours as needed. 90 tablet 1 5 Active sertraline (ZOLOFT) 100 MG tabletIndications: Recurrent major depressive disorder, in partial remission Take 1 tablet (100 mg total) by mouth daily. 90 tablet 1 5 Active metoprolol succinate ER (TOPROL-XL) 25 MG 24 hr tabletIndications: Essential hypertension Take 1 tablet (25 mg total) by mouth daily. 90 tablet 1 5 Active losartan (COZAAR) 25 MG tabletIndications: Essential hypertension Take 1 tablet (25 mg total) by mouth daily. 90 tablet 1 5 Active gabapentin (NEURONTIN) 800 MG tabletIndications: Arthritis Take 1 tablet (800 mg total) by mouth daily. 90 tablet 1 5 Active estradiol (ESTRACE) 0.1 MG/GM vaginal creamIndications:V aginal dryness Place 2 g vaginally 2 (two) times a week. 42.5 g 1 5 Active atorvastatin (LIPITOR) 10 MG tabletIndications: Mixed hyperlipidemia Take 1 tablet (10 mg total) by mouth daily. 90 tablet 1 5 Active Active Problems Problem Noted Date Diagnosed [...] 01/21/2017 07/23/2019 Skin lesion of left leg 01/21/201702/14 Unknown and unspecified causes of morbidity 08/15/2013 03/05/2023 Overview (07/19/2019): Overview: Migraine Encounters Date Type Department Care Team Description 07/08/2025 Scan [facility] SRVCS Scanned, Doc Med Group 06/19/2025 Telephone [facility] Medical Group Family & Internal Medicine [address] [address] Todd Oliver MD Medication Request 05/28/2025 Scan [employer] INFO SRVCS Scanned, Doc Med Group Lab (SCAN) from Last 3 Months Immunizations Immunization Administration [...] st Contact Info) Description 10/18/2025 7:00 AM NEONATAL ICU COORDINATOR Office Visit [facility] Medical Group Family & Internal Medicine [address] [address] Todd Oliver MD [address] [place] [address] Health Maintenance Due Date Last Done Comments Hepatitis C 1981 Pneumococcal Vaccine: 50+ Years (1 of 1 - PCV) 2013 Zoster Vaccines (1 of 2) 2013 Colorectal Cancer Screening Colonoscopy (10 Years) 09/29/2023 09/29/2018, PHQ-2 (Physician [place]) 11/15/2024 02/17/2024 COVID-19 Vaccine ( season) 2025 08/21/2021, 12/16/2020, 11/25/2020 Influenza Adult (#1) 2025 09/04/2023, 08/11/2018, 08/31/2017 Annual Physical 08/24/2025 08/24/2024, 04/2 11/2022, 01/13/2022 [...] OUTSIDE LAB (SCAN ORDER) (05/28/2025) 05/28/2025 us [employer] [place] [facility] Scanned SCANNING Final Resu lt * MAMMOGRAM GENERIC (SCAN ORDER) (05/24/2024) Anatomical Region Laterality Modality Other 05/24/2024 us Doc Med Group Scanned SCANNING Final Resu lt * COLONOSCOPY (09/29/2018) us Documents Scanned SCANNING Final Result [facility] [address] [address] from Last 3 Months or Most Recently Relevant to Health Maintenance Insurance [facility] [facility] Care Teams Professor Of Communication Arts Relationship Specialty [place] [address] [place] [address] PCP - General FAMILY PRACTICE 06/15/19
--- OUTSIDE RECORDS SUMMARY | 2025-08-27 16:54 | XMS_ITS | Encounter Summary ---
Author Organization [facility] Address [address] [place] [address] Care Team Providers Care Account Supervisor Name Role Phone Todd Oliver MD Primary Care Provider +1- [phone] Encounter Details Date Type Department Care Team (Late st Contact Info) Description 01/14/2023 Pipefish Message Enc [facility] Medical Group [facility] [address] [place] [address] Arelis Hanson FNP-BC [address] [place] [address] [facility] US order Social History Tobacco Use [...] needed as well. Sorry about the duplication. IRATORY SCIENTIST * Gayla Perez RN - 01/15/2023 3:38 PM CST Okay for bilateral breast US? What dx code? IRATORY SCIENTIST * Soledad Lloyd RN - 01/15/2023 3:03 PM CST . IRATORY SCIENTIST * Vickie Garcia - 01/15/2023 2:58 PM CST [facility] called and they need an order for this patient's to have an U/S of her breast. Fx# [phone] IRATORY SCIENTIST documented in this encounter Plan of Treatment Upcoming Encounters Date Type Department Care Team (Late st Contact Info) Description 10/18/2025 7:00 AM RESPIRATORY SCIENTIST Office Visit [facility] Medical Group Family [facility] [address] [place] [address] [place] [address] [place] [address] documented as of this encounter Visit Diagnoses Not on filedocumented in this encounter Additional Health Concerns Assessment Noted Time PHQ-9 Depression Total Score: 0 01/14/20 22 11:15 AM RESPIRATORY SCIENTIST documented as of this encounter Care Teams Account Supervisor Relationship Specialty [place] [address] [place], [place] [id number] PCP - General FAMILY PRACTICE 06/15/19 documented as of this encounter
--- OUTSIDE RECORDS SUMMARY | 2025-08-27 16:55 | XMS_ITS | Encounter Summary ---
Author Organization [facility] Address [address] [place] [address] Care Team Providers Care Supervisor Lead Burning Name Role Phone Todd Oliver MD Primary Care Provider +1- [phone] Encounter Details Date Type Department Care Team (Late Contact Info) Description 12/26/2023 Yatrahart Message Enc [facility] [place] [facility] [place] [facility] [address] [place] [address] [place] [address] [place] [address] Sleep Study Social History Tobacco [...] (Late Contact Info) Description 10/18/2025 7:00 AM RESEARCH PROJECT COORDINATOR Office Visit [facility] Family & Internal Medicine [facility] [address] [place] [address] [place] [address] [place] [address] documented as of this encounter Visit Diagnoses Not on filedocumented in this encounter Additional Health Concerns Assessment Noted Time PHQ-9 Depression Total Score: 1 03/05/20 23 7:08 AM CDT documented as of this encounter Care Teams Supervisor Lead Burning Relationship Specialty [place] [address] [place] [address] PCP - General FAMILY PRACTICE 06/15/19 documented as of this encounter
--- OUTSIDE RECORDS SUMMARY | 2025-08-27 16:55 | XMS_ITS | Patient Health Record ---
Author Organization [facility] Address [address] [facility] [address] [place] [address] Care Team Providers Care Content Assistant Name Role Phone Benito STERLING, Todd Primary Care Provider Eliezer FINN MD, BERYL Unavailable Reason For Referral No Information Plan Of Treatment Pending Test Test Name Order Date Colonoscopy 09/02/2018 Insurance Providers Payer Name Payer Address Payer Phone Subscriber Number Group Number Insured Name Patient Relationship to Insured Coverage Start Date Coverage End Date [employer] [address] [place], [place] [id number] Brittney Ni Self - patient is the insured
--- OUTSIDE RECORDS SUMMARY | 2025-08-27 16:55 | XMS_ITS | Clinical Summary ---
Author Organization [facility] Address [address] [place] [address] Care Team Providers Care Scouring Train Operator Chief Name Role Phone Todd Oliver MD Primary Care Provider +1- [phone] Allergies Active Allergy Reactions Criticality Noted Date [...] on file Legal Sex Female 2:36 AM PRE BILLING SPECIALIST Gender Identity Female 10/26/2020 8:06 AM PRE BILLING SPECIALIST Sexual Orientation Straight 10/26/2020 8: 06 AM PRE BILLING SPECIALIST Obstetrics History Last Filed Vital Signs Vital Sign Reading Time Taken Comments Blood Pressure 122/82 12/29/2022 1:21 PM PRE BILLING SPECIALIST Pulse 94 12/29/2022 1:21 PM PRE BILLING SPECIALIST Temperature - - Respiratory Rate 16 12/29/2022 1:21 PM PRE BILLING SPECIALIST Oxygen Saturation 97% 03/04/2016 11:50 AM CDT Inhaled Oxygen Concentration - - Weight 74.8 kg (165 lb) 12/29/2022 1:21 PM PRE BILLING SPECIALIST Height 157.5 cm (5' 2.01) 12/29/2022 1:21 PM CS T Body Mass Index 30.17 12/29/2022 1:21 PM PRE BILLING SPECIALIST Plan of Treatment Health Maintenance Due Date [...] patient's age to complete this topic Insurance [employer] [facility] CHOICE PLUS Care Teams Scouring Train Operator Chief Relationship Specialty [place] [address] [address] PCP - General 04/01/17
--- OUTSIDE RECORDS SUMMARY | 2025-08-27 16:55 | XMS_ITS | Encounter Summary ---
Author Organization [facility] Address [address] [place] [address] Care Team Providers Care District Administrator Name Role Phone Todd Oliver MD Primary Care Provider +1- [phone] Encounter Details Date Type Department Care Team (Late Contact Info) Description 03/16/2024 iListhart Message Enc [facility] Family & Internal Medicine [facility] [address] [place] [address] [place] [address] [place] [address] Diagnostic mammogram follow up Social [...] (Late Contact Info) Description 10/18/2025 7:00 AM SALES DEPARTMENT SUPERVISOR Office Visit [facility] Family & Internal Medicine [facility] [address] [place] [address] [place] [address] [place] [address] documented as of this encounter Visit Diagnoses Not on filedocumented in this encounter Additional Health Concerns Assessment Noted Time PHQ-9 Depression Total Score: 1 03/05/20 23 7:08 AM CDT documented as of this encounter Care Teams District Administrator Relationship Specialty [place] [address] [place] [address] PCP - General FAMILY PRACTICE 06/15/19 documented as of this encounter
--- OUTSIDE RECORDS SUMMARY | 2025-08-27 16:55 | XMS_ITS | Clinical Summary ---
Author Organization [facility] Address [address] [place] [address] Phone Care Team Providers Care Counselor Manager Name Role Phone Todd Oliver MD Primary Care Provide r Family History Medical History Relation Name Comments [...] 2008 ZOSTER VACCINE (1 of 2) 2013 BREAST CANCER SCREENING 05/24/2025 05/24/20, 08/27/2023, 02/18/2023, Additional history exists INFLUENZA VACCINE (#1) 2025 COVID-19 Vaccine (2024-2 6 season) 2025 08/21/2021, 12/16/2020, 11/25/2020 COLORECTAL SCREENING 09/29/2028 09/29/2018 Colorectal Cancer Screening [...] 3: Probably benign findings DICTATION LOCATION: [facility] 05/24/2024 10:42 AM CDT EXAM: BILATERAL DIGITAL [...] Category 3: Probably benign findings DICTATION LOCATION: [facility] Todd Oliver MD MAMMO ORDERABLES Abiola burnham Result from Last 3 Months or Most Recently Relevant to Health Maintenance Insurance Care Teams Counselor Manager Relationship Specialty [place] [address] [place] [address] PCP - General Family Practice 02/18/23
[2025-08-27 17:02] VITALS: BP 149/79; PULSE 77; RESP 16; TEMP 36.2; O2SAT 97
--- NOTE | 2025-08-27 17:07 | ED.UPPEXIN ---
HPI - Extremity Injury (Upper) General Chief Complaint: Extremity Injury, Upper Stated Complaint: R Wrist Time Seen by Provider: 08/27/25 17:05 Source: patient Mode of arrival: ambulatory Limitations: no limitations History of Present Illness HPI narrative: Brittney is a 60-year-old female patient presenting to the clinic today with complaints of right wrist/hand pain after falling 4 days ago. She reports she tripped on a sidewalk and fell on outstretched hand. Has pain to the right thumb, right index finger, as well as over the distal radius. Has some mild swelling when compared to the left. Rates her pain 04/24. Has been taking ibuprofen for her pain. Related Data Home Medications ?Medication ?Instructions ?Recorded ?Confirmed ?Last Taken ?Type atorvastatin 10 mg tablet 10 mg DIRECTED 12/22/23 09/28/24 Unknown History gabapentin 800 mg tablet 800 mg DIRECTED 12/22/23 09/28/24 Unknown History lisinopril 10 mg tablet 10 mg DIRECTED 12/22/23 09/28/24 Unknown History metoprolol succinate 25 mg 25 mg PO DIRECTED 12/22/23 07/08/25 Unknown History tablet,extended release 24 hr sertraline 100 mg tablet (Zoloft) 100 mg PO DAILY 07/27/24 07/08/25 Unknown History estradiol 0.01% (0.1 mg/gram) vaginal 07/08/25 Unknown History vaginal cream losartan 25 mg tablet mg 07/08/25 Unknown History Allergies Allergy/AdvReac Type Severity Reaction Status Date / Time morphine Allergy Mild Hives / Verified 07/08/25 10:51 Red Face iohexol (From contrast - CT, Allergy Hives Verified 07/08/25 10:51 X-RAY) SEAFOOD-N & V Allergy Unknown HIVES Uncoded 07/08/25 10:51 Review of Systems Review of Systems: Pertinent positives per HPI. Patient denies any fever, chills, rash, headache, visual changes, dizziness, cough, runny nose, sore throat, shortness of breath, chest pain, palpitations, nausea, vomiting, diarrhea, constipation, abdominal pain, or any urinary issues. [facility] Family History Family History Unknown Lung disease Hypertension Cerebrovascular accident High cholesterol Social History Social History Smoking status: Never smoker Alcohol intake: current Alcohol use details: 2 drinks per month Comments At the time of my signature, I reviewed and agree with the nursing past medical, surgical, social, and family history. There is no relevant family history pertinent to the patient complaint. Exam Narrative: General: Well-developed, well nourished, in no apparent distress Head: Normocephalic, atraumatic. Cardio: Regular rate and rhythm, s1 and s2 normal, no murmur appreciated. Resp: Clear to auscultation bilaterally, no rhonchi, rales, wheezing or rubs. Musculoskeletal: No deformity, tender to palpation over the right thumb, right index finger, and right distal radial wrist, mild swelling noted when compared to the left, grossly normal range of motion, muscle strength strong and equal, peripheral pulse strong, no edema, no cyanosis, normal gait and station Course Course Emergency Course: Portions of this record may have been created with voice recognition software. Level of Care: Express Care Visit Vital Signs Vital signs: Vital Signs Temperature 36.2 C L 08/27/25 17:02 Pulse Rate 77 08/27/25 17:02 Respiratory Rate 16 08/27/25 17:02 Blood Pressure 149/79 H 08/27/25 17:02 Pulse Oximetry 97 08/27/25 17:02 Oxygen Delivery Room Air 08/27/25 17:02 Temperature 36.2 C L 08/27/25 17:02 Pulse Rate 77 08/27/25 17:02 Respiratory Rate 16 08/27/25 17:02 Blood Pressure 149/79 H 08/27/25 17:02 Pulse Oximetry 97 08/27/25 17:02 Oxygen Delivery Room Air 08/27/25 17:02 Vital signs reviewed MDM - Extremity Injury (Upper) MDM Narrative Medical decision making narrative: At the time of visit patient is resting comfortably on the exam table. Patient appears to be nontoxic. Complaints of right wrist/hand pain after falling 4 days ago. She reports she tripped on a sidewalk and fell on outstretched hand. Has pain to the right thumb, right index finger, as well as over the distal radius. Has some mild swelling when compared to the left. On exam patient has tenderness to palpation over the right thumb, right index finger, and right distal radial wrist, mild swelling noted when compared to the left, grossly normal range of motion, radial pulses strong. X-ray of the right wrist and hand was ordered. Diagnostics: X-ray of the right hand and wrist are negative for any sign of fracture or malalignment, does show some moderate degenerative changes Plan: I suspect patient has right hand/wrist sprain. Wendy wrap and ice pack was given. Supportive measures were discussed with the patient and they voiced understanding discharge instructions and agrees to treatment plan. Return precautions reviewed Differential Diagnosis Differential diagnosis: Likely sprain and strain of wrist, fracture of wrist, finger sprain, dislocation of finger and fracture of hand Imaging Data Radiologist's impression: ITS Impressions Hand X-Ray 08/27/25 17:19 Impression: No acute fracture or malalignment. Discharge Plan Discharge Clinical Impression: Acute wrist pain Qualifiers: Laterality: right Qualified Code(s): M25.531 - Pain in right wrist Sprain of hand, right Qualifiers: Encounter type: initial encounter Qualified Code(s): S63.91XA - Sprain of unspecified part of right wrist and hand, initial encounter Patient Disposition: Home Condition: Stable Instructions: Antibiotic Form, Wrist Injury (ED), Hand Sprain (ED) Additional Instructions: X-rays of the right wrist and right hand are negative for any sign of fracture or malalignment-does show some moderate degenerative changes Rest, ice, elevate, and wear wendy wrap as directed May wear wrist splint as needed Tylenol/motrin for pain as discussed. Follow up with your PCP if symptoms persist more than 1 week. Patient Language: [place] Prescriptions: No Action losartan 25 mg tablet estradiol 0.01 % (0.1 mg/gram) cream VAGINAL atorvastatin 10 mg tablet 10 mg DIRECTED gabapentin 800 mg tablet 800 mg DIRECTED lisinopril 10 mg tablet 10 mg DIRECTED metoprolol succinate 25 mg tablet extended release 24 hr 25 mg PO DIRECTED sertraline [Zoloft] 100 mg tablet 100 mg PO DAILY Follow-up/Referrals: Benito,Todd Marinelli MD [Primary Care Provider] Time of Disposition: 17:44 Quality NIHSS Nursing Documentation ED NIHSS nursing documentation: reviewed/agree
== END 2025-08-27 17:56 | disposition home or self-care (01) ==
PROVIDERS: Emergency Provider Nurse Practitioner Family; PCP Family Medicine
DX: M25.531 Pain in right wrist (principal); S63.91XA Sprain of unspecified part of right wrist and hand, initial encounter; W01.0XXA Fall on same level from slipping, tripping and stumbling without subsequent striking against object, initial encounter; I10 Essential (primary) hypertension; G50.0 Trigeminal neuralgia; F41.9 Anxiety disorder, unspecified; F32.A Depression, unspecified
CPT/HCPCS: 73110; 73130; 99213; G0463

== ENCOUNTER 2025-09-11 11:50 | Outpatient (CLI) | payer OTHER, SELFPAY ==
--- OUTSIDE RECORDS SUMMARY | 2024-07-19 04:15 | XMS_ITS ---
Author Organization [facility] ([address]) Address [address] [facility] [address] [place] [address] Care Team Providers Care Avionics Installer Name Role Phone Alexx Monge Unavailable [phone] REASON FOR VISIT [facility], on Tirzepatide, no side effects, appetite suppression wasn't great lasting 3 days., Desired weight loss: 30-40 lbs, -2.6 lbs lbs since last visit, -14 lbs total, No history MTC or MEN2 or pancreatitis, Concerned about future DM and OA Medications Medication SIG (Take, Route, Frequency, Duration) Notes Start Date End Date Status Gabapentin 800 MG 1 tab(s) orally 3 times a day; Duration: 30 day(s) 04/06/2024 Active Sertraline HCl 100 MG 1 tab(s) orally once a day; Duration: 30 day(s) 04/06/2024 Active Metoprolol Tartrate 25 MG 1 tab(s) orally 2 times a day; Duration: 30 day(s) 04/06/2024 Active Lisinopril 10 MG 1 tab(s) orally once a day; Duration: 30 day(s) 04/06/2024 Active Tirzepatide 10 MG/0.5 ML DIRECTED SUBCUTANEOUSLY ONCE A WEEK *Please review and pick correct strength-formulati on from Medispan options. If intended option is not shown, discontinue and re-order from Quick Search* Active MANAGER FIELD Thyroid 30 MG 1/2 tablet on an empty stomach x 1 week, then 1 full tablet on an empty stomach thereafter, as tolerated Orally Once a day; Duration: 30 days Take 15 mg daily x 1 week, then 30 mg thereafter, as tolerated. 06/28/2024 Active Atorvastatin Calcium 10 MG 1 tab(s) orally once a day; Duration: 30 day(s) 04/06/2024 Active Vital Signs Height 61.9 in 07/19/2024 Weight 158.2 lbs 07/19/2024 BMI 29.03 kg/m2 07/19/2024 Encounters Encounter Location Date Provider Diagnosis [facility] ([address]) [address] [place] [id number] 07/19/2024 Alexx Monge Chronic fatigue, unspecified R53.82 ; Abnormal weight gain R63.5 ; Other fatigue R53.83 and Other malaise R53.81 Assessments Encounter Date Diagnosis (ICD Code) Assessment Notes Treatment Notes Treatment Clinical Notes Section Notes 07/19/2024 Chronic fatigue, unspecified (ICD-10 - R53.82) 07/19/2024 Abnormal weight gain (ICD-10 - R63.5) 07/19/2024 Other fatigue (ICD-10 - R53.83) 07/19/2024 Other malaise (ICD-10 - R53.81) Plan Of Treatment Next Appt Details Follow Up: 1 Week, Reason: G LP-1 Agonist Administration. GLP-1 Agonist Administration Procedure Notes * Category Sub-Category Detail Notes [facility] Weight Management tirzepatide Indication: weig ht loss Concentration: 10 mg/mL Volume Administered: 0.25 mL Dose Administered: 2.5 mg Route: SQ Location: Right abdomen Frequency: weekly Lot Number/Expiration: Medication Source: [employer] Adverse Reaction: None Progress Notes * Brittney WELSHDOB: [birth year] (60 yo F)Acc No.[id number]:07/19/2024 Weight Loss Patient: Brittney BORJA Provider: Leticia Monge MD :1965 A ge:59 Y S ex:Female Date:07/19/2024 [facility] Subjective: * Chief Complaints: * 1 . [facility], on Tirzepatide, no side effects, appetite suppression wasn't great lasting 3 days.. 2. Desired weight loss: 30-40 lbs, -2.6 lbs lbs since last visit, -14 lbs total. 3. No history MTC or MEN2 or pancreatitis. 4. Concerned about future DM and OA. * Medical History: * Medications: T aking Tirzepatide 10 MG/0.5 ML SOLUTION DIRECTED SUBCUTANEOUSLY ONCE A WEEK , Notes to Pharmacist: *Please review and pick correct strength-formulation from Medispan options. If intended option is not shown, discontinue and re-order from Quick Search*, Taking Lisinopril 10 MG Tablet 1 tab(s) orally once a day , Taking Sertraline HCl 100 MG Tablet 1 tab(s) orally once a day , Taking Gabapentin 800 MG Tablet 1 tab(s) orally 3 times a day , Taking Metoprolol Tartrate 25 MG Tablet 1 tab(s) orally 2 times a day , Taking Atorvastatin Calcium 10 MG Tablet 1 tab(s) orally once a day , Taking MANAGER FIELD Thyroid 30 MG Tablet 1/2 tablet on an empty stomach x 1 week, then 1 full tablet on an empty stomach thereafter, as tolerated Orally Once a day , Notes to Pharmacist: Take 15 mg daily x 1 week, then 30 mg thereafter, as tolerated. Objective: * Vitals: H t: 61.9 in, Wt: 158.2 lbs, BMI:29.03Index. Assessment: * Assessment: 1. A bnormal weight gain - R63.5 (Primary) 2 . C hronic fatigue, unspecified - R53.82 3 . O ther fatigue - R53.83 4 . O ther malaise - R53.81 Plan: * Treatment: * Procedures: [facility]: Weight Management: tirzepatide I ndication w eight loss C oncentration 1 0 mg/mL V olume Administered 0 .25 mL D ose Administered 2 .5 mg R oute S Q L ocation R ight abdomen F requency w eekly L ot Number/Expiration 0 M edication Source H [facility] A dverse Reaction N one * Follow Up: 1 Week (Reason: GLP-1 Agonist Administration. GLP-1 Agonist Administration) * Billing Information: * Visit Code: * Procedure Codes: 47862 [facility] - Weekly (tirzepatide) (0.5-5 mg) Tier 1. * Electronic signature of Reid Monge MD, FAAAAI on 09/11/2025 at 01:55 PM CDT Sign off status: Pending * Provider: Leticia Monge MD Date: 0 07/19/2024 Generated for Vianey Holcomb/Raegan on: 1 01:55 PM CDT
--- OUTSIDE RECORDS SUMMARY | 2024-07-26 04:00 | XMS_ITS ---
Author Organization [email or web address] [place] ([address]) Address [address] [facility] [address] [place] [address] Care Team Providers Care Utility Service Worker Name Role Phone Alexx Monge Unavailable [phone] REASON FOR VISIT [facility] Weight [facility], on Tirzepatide, no side effects, appetite suppression wasn't great lasting 3 days., Desired weight loss: 30-40 lbs, -0.2 lbs lbs since last visit, -14.2 lbs total, No history MTC or MEN2 or pancreatitis, Concerned about future DM and OA Medications Medication SIG (Take, Route, Frequency, Duration) Notes Start Date End Date Status Atorvastatin Calcium 10 MG 1 tab(s) orally once a day; Duration: 30 day(s) 04/06/2024 Active Metoprolol Tartrate 25 MG 1 tab(s) orally 2 times a day; Duration: 30 day(s) 04/06/2024 Active [employer] MARKETING Thyroid 30 MG 1/2 tablet on an empty stomach x 1 week, then 1 full tablet on an empty stomach thereafter, as tolerated Orally Once a day; Duration: 30 days Take 15 mg daily x 1 week, then 30 mg thereafter, as tolerated. 06/28/2024 Active Gabapentin 800 MG 1 tab(s) orally 3 [...] discontinue and re-order from Quick Search* Active Vital Signs Height 61.9 in 07/26/2024 Weight 158 lbs 07/26/2024 BMI 28.99 kg/m2 07/26/2024 Encounters Encounter Location Date Provider Diagnosis [facility] ([address]) [address] [place] [id number] 07/26/2024 Alexx Monge Chronic fatigue, unspecified R53.82 ; Abnormal weight gain R63.5 ; Other fatigue R53.83 and Other malaise R53.81 Assessments Encounter Date Diagnosis (ICD Code) Assessment Notes Treatment Notes Treatment Clinical Notes Section Notes 07/26/2024 Chronic fatigue, unspecified (ICD-10 - R53.82) 07/26/2024 Abnormal weight gain (ICD-10 - R63.5) 07/26/2024 Other fatigue (ICD-10 - R53.83) 07/26/2024 Other malaise (ICD-10 - R53.81) Plan Of Treatment Next Appt Details Follow Up: 1 Week, Reason: G LP-1 Agonist Administration. GLP-1 Agonist Administration Procedure Notes * Category Sub-Category Detail Notes [facility] Weight Management tirzepatide Indication: weig ht loss Concentration: 10 mg/mL Volume Administered: 0.25 mL Dose Administered: 2.5 mg Route: SQ Location: Right abdomen Frequency: weekly Lot Number/Expiration: Medication Source: [employer] Adverse Reaction: None Progress Notes * Brittney WELSHDOB: [birth year] (60 yo F)Acc No.[id number]:07/26/2024 Weight Loss Patient: Brittney BORJA Provider: Leticia Monge MD :1965 A ge:59 Y S ex:Female Date:07/26/2024 Address:[address] [place], [place] [id number] Subjective: * Chief Complaints: * 1 . [facility] Weight [facility], on Tirzepatide, no side effects, appetite suppression wasn't great lasting 3 days.. 2. Desired weight loss: 30-40 lbs, -0.2 lbs lbs since last visit, -14.2 lbs total. 3. No history MTC or [...] tab(s) orally once a day , Taking DIRECTOR OF HE[employer] C[employer] MARKETING Thyroid 30 MG Tablet 1/2 tablet on an empty stomach x 1 week, then 1 full tablet on an empty stomach thereafter, as tolerated Orally Once a day , Notes to Pharmacist: Take 15 mg daily x 1 week, then 30 mg thereafter, as tolerated. Objective: * Vitals: H t: 61.9 in, Wt: 158 lbs, BMI:28.99Index. Assessment: * Assessment: 1. A bnormal weight [...] ot Number/Expiration 0 M edication Source H [facility] A dverse Reaction N one * Follow Up: 1 Week (Reason: GLP-1 Agonist Administration. GLP-1 Agonist Administration) * Billing Information: * Visit Code: * Procedure Codes: 28708 [facility] - Weekly (tirzepatide) (0.5-5 mg) Tier 1. * Electronic signature of Reid Monge MD, FAAAAI on 09/11/2025 at 01:53 PM CDT Sign off status: Pending * Provider: Leticia Monge MD Date: 0 07/26/2024 Generated for Viaeny cantrell/Honey/Raegan on: 1 01:53 PM CDT
--- OUTSIDE RECORDS SUMMARY | 2024-08-02 03:00 | XMS_ITS ---
Author Organization [facility] [place] ([address]) Address [address] [facility] [address] [place] [address] Care Team Providers Care Aluminum Molder Name Role Phone Alexx Monge Unavailable [phone] REASON FOR VISIT [facility], on Tirzepatide, no side effects, appetite suppression is lasting 3-4 days., Desired weight loss: 30-40 lbs, -0.0 lbs lbs since last visit, -14.2 lbs total, No history MTC or MEN2 or pancreatitis, Concerned about future DM and OA Medications Medication SIG (Take, Route, Frequency, Duration) Notes Start Date End Date Status Sertraline HCl 100 MG 1 tab(s) orally once a day; Duration: 30 day(s) 04/06/2024 Active Metoprolol Tartrate 25 MG 1 tab(s) orally 2 times a day; Duration: 30 day(s) 04/06/2024 Active Gabapentin 800 MG 1 tab(s) orally 3 times a day; Duration: 30 day(s) 04/06/2024 Active Atorvastatin Calcium 10 MG 1 tab(s) orally once a day; Duration: 30 day(s) 04/06/2024 Active MEMBERSHIP COORDINATOR Thyroid 30 MG 1/2 tablet on an empty stomach x 1 week, then 1 full tablet on an empty stomach thereafter, as tolerated Orally Once a day; Duration: 30 days Take 15 mg daily x 1 week, then 30 mg thereafter, as tolerated. 06/28/2024 Active Lisinopril 10 MG 1 tab(s) orally once a day; Duration: 30 day(s) 04/06/2024 Active Tirzepatide 10 MG/0.5 ML DIRECTED SUBCUTANEOUSLY ONCE A WEEK *Please review and pick correct strength-formulati on from Medispan options. If intended option is not shown, discontinue and re-order from Quick Search* Active Vital Signs Height 61.9 in 08/02/2024 Weight 158.0 lbs 08/02/2024 BMI 28.99 kg/m2 08/02/2024 Encounters Encounter Location Date Provider Diagnosis [facility] [place] ([address]) [address] [place] [address] 08/02/2024 Alexx Monge Chronic fatigue, unspecified R53.82 ; Abnormal weight gain R63.5 ; Other fatigue R53.83 and Other malaise R53.81 Assessments Encounter Date Diagnosis (ICD Code) Assessment Notes Treatment Notes Treatment Clinical Notes Section Notes 08/02/2024 Chronic fatigue, unspecified (ICD-10 - R53.82) 08/02/2024 Abnormal weight gain (ICD-10 - R63.5) 08/02/2024 Other fatigue (ICD-10 - R53.83) 08/02/2024 Other malaise (ICD-10 - R53.81) Plan Of Treatment Next Appt Details Follow Up: 1 Week, Reason: G LP-1 Agonist Administration. GLP-1 Agonist Administration Procedure Notes * Category Sub-Category Detail Notes [facility]: Weight Management tirzepatide Indication: weig ht loss Concentration: 10 mg/mL Volume Administered: 0.25 mL Dose Administered: 2.5 mg Route: SQ Location: [facility] Frequency: weekly Lot Number/Expiration: Medication Source: [facility] Adverse Reaction: None Progress Notes * Brittney WELSHDOB: [birth year] (60 yo F)Acc No.[id number]:08/02/2024 Weight Loss Patient: Brittney BORJA Provider: Leticia Monge MD :1965 A ge:59 Y S ex:Female Date:08/02/2024 Address:[address] [place], [place] [id number] Subjective: * Chief Complaints: * 1 . [facility], on Tirzepatide, no side effects, appetite suppression is lasting 3-4 days.. 2. Desired weight loss: 30-40 lbs, -0.0 lbs lbs since last visit, -14.2 lbs [...] tab(s) orally once a day , Taking MEMBERSHIP COORDINATOR Thyroid 30 MG Tablet 1/2 tablet on an empty stomach x 1 week, then 1 full tablet on an empty stomach thereafter, as tolerated Orally Once a day , Notes to Pharmacist: Take 15 mg daily x 1 week, then 30 mg thereafter, as tolerated. Objective: * Vitals: H t: 61.9 in, Wt: 158.0 lbs, BMI:28.99Index. Assessment: * Assessment: 1. A [...] mg R oute S Q L ocation L UA F requency w eekly L ot Number/Expiration 0 M edication Source [facility] A dverse Reaction N one * Follow Up: 1 Week (Reason: GLP-1 Agonist Administration. GLP-1 Agonist Administration) * Billing Information: * Visit Code: * Procedure Codes: * Electronic signature of Reid Monge MD, FAAAAI on 09/11/2025 at 01:55 PM CDT Sign off status: Pending * Provider: Leticia Monge MD Date: 0 08/02/2024 Generated for Vianey cantrell/Honey/Raegan on: 1 01:55 PM CDT
--- OUTSIDE RECORDS SUMMARY | 2024-08-24 03:00 | XMS_ITS ---
Author Organization [facility] [place] ([address]) Address [address] [facility] [address] [place] [address] Care Team Providers Care Fireman Name Role Phone Alexx Monge Unavailable [phone] REASON FOR VISIT [facility], [...] a day; Duration: 30 day(s) 04/06/2024 Active MULTI CARE TECHNICIAN Thyroid 30 MG 1/2 tablet on an [...] Provider Diagnosis [facility] [place] ([address]) [address] [place] [address] 08/24/2024 Alexx Monge Chronic fatigue, unspecified R53.82 [...] abdomen Frequency: weekly Lot Number/Expiration: Medication Source: [facility] Adverse Reaction: None Progress Notes * Brittney WELSHDOB: [birth year] (60 yo F)Acc No.[id number]:08/24/2024 Weight Loss Patient: Brittney BORJA Provider: Leticia Monge MD :1965 A ge:59 Y S ex:Female Date:08/24/2024 Address:[address] [place], [place] [phone] Subjective: * Chief Complaints: * 1 . [...] tab(s) orally once a day , Taking MULTI CARE TECHNICIAN Thyroid 30 MG Tablet 1/2 tablet on [...] ot Number/Expiration 0 M edication Source [facility] A dverse Reaction N one * Follow Up: 1 Week (Reason: GLP-1 Agonist Administration. GLP-1 Agonist Administration) * Billing Information: * Visit Code: * Procedure Codes: * Electronic signature of Reid Monge MD, FAAAAI on 09/11/2025 at 01:53 PM CDT Sign off status: Pending * Provider: Leticia Monge MD Date: 1 Generated for Vianey cantrell/Honey/Raegan on: 01:53 PM CDT
--- OUTSIDE RECORDS SUMMARY | 2024-08-31 03:15 | XMS_ITS ---
Author Organization [facility] [place] ([address]) Address [address] [facility] [address] [place] [address] Care Team Providers Care Tire Setter Name Role Phone Alexx Monge Unavailable [phone] REASON FOR VISIT [facility], on Tirzepatide, no side effects, appetite suppression is lasting 3-4 days. no new side effects, Desired weight loss: 30-40 lbs, -0.2 lbs lbs since last visit, -14.6 lbs total, No history MTC or MEN2 or pancreatitis, Concerned about future DM and OA Medications Medication SIG (Take, Route, Frequency, Duration) Notes Start Date End Date Status CROCODILE FARMER Thyroid 30 MG 1/2 tablet on an [...] Provider Diagnosis [facility] - [facility] [place] ([address]) [address] [place] [address] 08/31/2024 Alexx Monge Chronic fatigue, unspecified R53.82 [...] abdomen Frequency: weekly Lot Number/Expiration: Medication Source: [facility] Adverse Reaction: None Progress Notes * Brittney WELSHDOB: [birth year] (60 yo F)Acc No.[id number]:08/31/2024 Weight Loss Patient: Brittney BORJA Provider: Leticia Monge MD :1965 A ge:59 Y S ex:Female Date:08/31/2024 Address:[address] [place] [address] Subjective: * Chief Complaints: * 1 . [...] tab(s) orally once a day , Taking CROCODILE FARMER Thyroid 30 MG Tablet 1/2 tablet on [...] Patr ick Win , MD, FAAAAI on 09/11/2025 at 01:53 PM CDT Sign off status: Pending * Provider: Leticia Monge MD Date: Generated for Vianey cantrell/Honey/Raegan on: 01:53 PM CDT
--- OUTSIDE RECORDS SUMMARY | 2024-09-07 03:30 | XMS_ITS ---
Author Organization [facility] [place] ([address]) Address [address] [facility] [address] [place] [address] Care Team Providers Care Senior Director Marketing Name Role Phone Alexx Monge Unavailable [phone] REASON FOR VISIT [facility], on Tirzepatide, no side effects, appetite suppression is lasting 4-5 days. no new side effects, Desired weight loss: 30-40 lbs +0.4 lbs since last visit, -14.2 lbs total, [...] discontinue and re-order from Quick Search* Active HEALTH SERVICES DIRECTOR Thyroid 30 MG 1/2 tablet on an empty stomach x 1 week, then 1 full tablet on an empty stomach thereafter, as tolerated Orally Once a day; Duration: 30 days Take 15 mg daily x 1 week, then 30 mg thereafter, as tolerated. 06/28/2024 Active Vital Signs Height 61.9 in 09/07/2024 Weight 158.0 lbs 09/07/2024 BMI 28.99 kg/m2 09/07/2024 Encounters Encounter Location Date Provider Diagnosis [facility] [place] ([address]) [address] [place] [address] 09/07/2024 Alexx Monge Chronic fatigue, unspecified R53.82 ; Abnormal weight gain R63.5 ; Other fatigue R53.83 and Other malaise R53.81 Assessments Encounter Date Diagnosis (ICD Code) Assessment Notes Treatment Notes Treatment Clinical Notes Section Notes 09/07/2024 Chronic fatigue, unspecified (ICD-10 - R53.82) 09/07/2024 Abnormal weight gain (ICD-10 - R63.5) 09/07/2024 Other fatigue (ICD-10 - R53.83) 09/07/2024 Other malaise (ICD-10 - R53.81) Plan Of Treatment Next Appt Details Follow Up: 1 Week, Reason: G LP-1 Agonist Administration. GLP-1 Agonist Administration Procedure Notes * Category Sub-Category Detail Notes [facility]: Weight Management tirzepatide Indication: weig ht loss Concentration: 10 mg/mL Volume Administered: 0.3 mL Dose Administered: 3 mg Route: SQ Location: Right abdomen Frequency: weekly Lot Number/Expiration: Medication Source: [employer] Adverse Reaction: None Progress Notes * Brittney WELSHDOB: [birth year] (60 yo F)Acc No.[id number]:09/07/2024 Weight Loss Patient: Brittney BORJA Provider: Leticia Monge MD :1965 A ge:59 Y S ex:Female Date:09/07/2024 Address:[address] [place], [place] [phone] Subjective: * Chief Complaints: * 1 . [facility], on Tirzepatide, no side effects, appetite suppression is lasting 4-5 days. no new side effects. 2. Desired weight loss: 30-40 lbs +0.4 lbs since last visit, -14.2 lbs total. [...] tab(s) orally once a day , Taking HEALTH SERVICES DIRECTOR Thyroid 30 MG Tablet 1/2 tablet on [...] .3 mL D ose Administered 3 mg R oute S Q L ocation R ight abdomen F requency w eekly L ot Number/Expiration 1 M edication Source A [facility] [employer] A dverse Reaction N one * Follow Up: 1 Week (Reason: GLP-1 Agonist Administration. GLP-1 Agonist Administration) * Billing Information: * Visit Code: * Procedure Codes: * Electronic signature of Reid Monge MD, FAAAAI on 09/11/2025 at 01:54 PM CDT Sign off status: Pending * Provider: Leticia Monge MD Date: Generated for Vianey cantrell/Honey/Raegan on: 01:54 PM CDT
--- OUTSIDE RECORDS SUMMARY | 2024-09-14 03:30 | XMS_ITS ---
Author Organization Formerly [facility] [place] ([address]) Address [address] [place] [phone] Care Team Providers Care Brass Reclaimer Name Role Phone SaleemAlexx Unavailable [phone] REASON FOR VISIT [facility], on Tirzepatide, no side effects, appetite suppression is lasting 4-5 days. no new side effects, Desired weight loss: 30-40 lbs +0.4 lbs since last visit, -14.2 lbs total, No history MTC or MEN2 or pancreatitis, Concerned about future DM and OA Encounters Encounter Location Date Provider Diagnosis [facility] [place] ([address]) [address] [place] [address] 09/14/2024 Alexx Monge Chronic fatigue, unspecified R53.82 [...] * Brittney WELSHDOB: [birth year] (60 yo F)Acc No.[id number]:09/14/2024 Weight Loss Patient: Brittney BORJA Provider: Leticia Monge MD :1965 A ge:59 Y S ex:Female Date:09/14/2024 Address:[address] [place] [address] Subjective: * Chief Complaints: * 1 . [...] Sign off status: Pending * Provider: Leticia oMnge MD Date: Generated for Printi ng/Fateeteeg/eTransmitting on: 01:54 PM CDT
--- NOTE | ~2025-09-11 | XR_ITS ---
EXAMINATION: XR lg joint inject/asp w image DATE: 09/11/2025 12:35 INDICATION: Right hip arthritis TECHNIQUE: A time-out was performed to verify the patient's name, date of , and procedure to be performed. The procedure including the risks, benefits, and alternatives was discussed with the patient. Risks discussed included bleeding and infection. The patient understood the risks and agreed to proceed. The skin overlying the right hip joint was prepped and draped in usual sterile fashion. Anesthetic was administered with 1% lidocaine subcutaneously. A 22 G needle was advanced under fluoroscopic guidance into the joint. Injection of a small amount of room air confirmed intra-articular position of the needle. Subsequently, injectate consisting of 3 mm a 2:1 mixture of 0.5% bupivacaine: 80 mg/mL Depo-Medrol for a total dosage of 80 mg Depo-Medrol was instilled. The needle was removed and the entry site was cleaned and dressed. There were no immediate complications. Fluoroscopy exposure time was 0.1 minutes. The total number of images was 1. Total DAP was 6 Gycm^2. FINDINGS: Real-time fluoroscopy demonstrates the needle and injected gas in the right hip joint. Patient's pain prior to procedure:03/24. Patient's pain following the procedure: 11/24. IMPRESSION: 1. Successful right hip joint injection of local anesthetic and steroid with decrease in the patient's presenting pain. Reviewed, dictated and finalized at location A. IMPRESSION: 1. Successful right hip joint injection of local anesthetic and steroid with de crease in the patient's presenting pain.
--- OUTSIDE RECORDS SUMMARY | 2025-09-11 13:53 | XMS_ITS | Clinical Summary ---
Author Organization [facility] Address [address] [place] [address] Care Team Providers Care Archives Technician Name Role Phone Todd Oliver MD Primary Care Provider Allergies Active Allergy Reactions Criticality Noted Date Comments Iodine Hives,Vomiting High 12/02/2020 Morphine Itching,Swelling Medium Shellfish Protein-Containing Drug Products Hives Medium 01/21/2017 Medications B Complex Tab takes daily 5 [...] Encounters Date Type Department Care Team Description 08/31/2025 Scan [facility] INFO SRVCS Scanned, Doc Med Group Image (SCAN) 08/27/2025 Scan [facility] Scanned, Doc Med Group Image (SCAN) 07/08/2025 Scan [facility] Scanned, Doc Med Group 06/19/2025 Telephone [facility] Medical Group Family & Internal Medicine [address] [address] Todd Oliver MD Medication Request from Last 3 Months Immunizations Immunization Administration [...] st Contact Info) Description 10/18/2025 7:00 AM HYDRAULIC TECHNICIAN Office Visit [facility] Medical Group Family & Internal Medicine [address] [address] Todd Oliver MD [address] [place] [id number] Health Maintenance Due Date Last Done Comments Hepatitis C 1983 Pneumococcal Vaccine: 50+ Years (1 of 1 - PCV) 2013 Zoster Vaccines (1 of 2) 2013 Colorectal Cancer Screening Colonoscopy (10 Years) 09/29/2023 09/29/2018, PHQ-2 (Physician [place]) 11/15/2024 02/17/2024 COVID-19 Vaccine ( season) 2025 08/21/2021, 12/16/2020, 11/25/2020 Influenza Adult (#1) 2025 09/04/2023, 08/11/2018, 08/31/2017 Annual Physical 08/24/2025 08/24/2024, 04/2 11/2022, 01/13/2022 Mammogram Screening 05/24/2026 05/24/2024, 05/24/2024, 08/27/2023, Additional history exists DTaP, Tdap and Td Vaccines (2 - Td or Tdap) 04/14/2033 04/14/2023 RSV Immunization or 60+ Years (1 - 1-dose 75+ series) 2038 Hepatitis A Vaccines Aged Out 08/24/2019, 08/03/20 17 No longer eligible based on patient's age to complete this topic Meningococcal B Vaccine Aged Out No l onger eligible based on patient's age to complete this topic Meningococcal Vaccine Aged Out No emily douglas eligible based on patient's age to complete this topic RSV Immunizations Under 20 Months Aged Out No longer eligible based on patient's age to complete this topic Procedures Procedure Name Priority Date/Time Associated Diagnosis Comments IMAGE GENERIC 08/31/2025 IMAGE GENERIC 08/27/2025 IMAGE GENERIC 08/27/2025 IMAGE GENERIC 08/27/2025 MAMMOGRAM GENERIC (SCAN ORDER) 05/24/2024 COLONOSCOPY GENERIC (SCAN ORDER) Routine 09/29/2018 from Last 3 Months or Most Recently Relevant to Health Maintenance Results * IMAGE GENERIC (08/31/2025) Only the most recent of4 resultswithin the time period is included. Anatomical Region Laterality Modality Other 08/31/2025 [employer] [facility] Scanned SCANNING Final Resu lt * MAMMOGRAM GENERIC (SCAN ORDER) (05/24/2024) Anatomical Region Laterality Modality Other 05/24/2024 [employer] [facility] Scanned SCANNING Final Resu lt * COLONOSCOPY (09/29/2018) us Documents Scanned SCANNING Final Result [facility] [place] [address] from Last 3 Months or Most Recently Relevant to Health Maintenance Insurance [employer] [facility]MR Care Teams Archives Technician Relationship Specialty [place] [address] [place] [address] PCP - General FAMILY PRACTICE 06/15/19
--- OUTSIDE RECORDS SUMMARY | 2025-09-11 13:53 | XMS_ITS | Encounter Summary ---
Author Organization [facility] Address [address] [place] [address] Care Team Providers Care Army Ranger Name Role Phone Todd Oliver MD Primary Care Provider +1- [phone] Encounter Details Date Type Department Care Team (Late Contact Info) Description 09/16/2024 Dealflickshart Message Enc [facility] Family & Internal Medicine [facility] [address] [place] [address] [place] [address] [place] [address] RX Social History Tobacco Use [...] (Late Contact Info) Description 10/18/2025 7:00 AM COLOR CARD MAKER Office Visit [facility] Family & Internal Medicine - [place] [address] [place] [address] [place] [address] [place] [address] documented as of this encounter Visit Diagnoses Not on filedocumented in this encounter Additional Health Concerns Assessment Noted Time PHQ-9 Depression Total Score: 1 03/05/20 23 7:08 AM CDT documented as of this encounter Care Teams Army Ranger Relationship Specialty [place] [address] [place] [address] PCP - General FAMILY PRACTICE 06/15/19 documented as of this encounter
--- OUTSIDE RECORDS SUMMARY | 2025-09-11 13:53 | XMS_ITS | Encounter Summary ---
Author Organization [facility] Address [address] [place] [address] Care Team Providers Care Inbound Customer Service Agent Name Role Phone Todd Oliver MD Primary Care Provider +1- [phone] Encounter Details Date Type Department Care Team (Late Contact Info) Description 04/11/2021 Foods You Can Message Enc [facility] Family & Internal Medicine [address] [address] [facility] Provider Referral Social History Tobacco Use [...] st Contact Info) Description 10/18/2025 7:00 AM WARDROBE ASSISTANT Office Visit [facility] Family & Internal Medicine - [place] [address] [place] [address] [place] [address] [place], [place] [id number] documented as of this encounter Visit Diagnoses Not on filedocumented in this encounter Care Teams Inbound Customer Service Agent Relationship Specialty [place] [address] [place] [address] PCP - General FAMILY PRACTICE 06/15/19 documented as of this encounter
--- OUTSIDE RECORDS SUMMARY | 2025-09-11 13:54 | XMS_ITS | Encounter Summary ---
Author Organization [facility] Address [address] [place] [address] Care Team Providers Care Patient Safety Officer Name Role Phone Todd Oliver MD Primary Care Provider +1- [phone] Encounter Details Date Type Department Care Team (Late st Contact Info) Description 01/14/2023 Etherpad Message Enc [facility] Family & Internal Medicine [facility] [address] [place] [address] Arelis Hanson FNP-BC [address] [place] [address] [facility] [place] order Social History Tobacco Use Types [...] needed as well. Sorry about the duplication. RAL MATCHER * Gayla Perez RN - 01/15/2023 3:38 PM CST Okay for bilateral breast US? What dx code? RAL MATCHER * Soledad Lloyd RN - 01/15/2023 3:03 PM CST . RAL MATCHER * Vickie Garcia - 01/15/2023 2:58 PM CST [facility] called and they need an order for this patient's to have an U/S of her breast. Fx# [phone] RAL MATCHER documented in this encounter Plan of Treatment Upcoming Encounters Date Type Department Care Team (Late st Contact Info) Description 10/18/2025 7:00 AM GENERAL MATCHER Office Visit [facility] Family & Internal Medicine [facility] [address] [place] [address] [place] [address] [place] [address] documented as of this encounter Visit Diagnoses Not on filedocumented in this encounter Additional Health Concerns Assessment Noted Time PHQ-9 Depression Total Score: 0 01/14/20 22 11:15 AM GENERAL MATCHER documented as of this encounter Care Teams Patient Safety Officer Relationship Specialty [place] [address] [place], [place] [id number] PCP - General FAMILY PRACTICE 06/15/19 documented as of this encounter
--- OUTSIDE RECORDS SUMMARY | 2025-09-11 13:54 | XMS_ITS | Encounter Summary ---
Author Organization [facility] Address [address] [place] [address] Care Team Providers Care Camp Director Name Role Phone Todd Oliver MD Primary Care Provider +1- [phone] Encounter Details Date Type Department Care Team (Latest Contact Info) Description 09/20/2018 Abstract [facility] Myriam Song MD Social History [...] st Contact Info) Description 10/18/2025 7:00 AM LEGISLATIVE DIRECTOR Office Visit [facility] Medical [facility] Family & Internal Medicine [facility] [address] [place] [address] [place] [address] [place] [address] documented as of this encounter Visit Diagnoses Not on filedocumented in this encounter Care Teams Camp Director Relationship Specialty [place] [address] [place] [address] PCP - General FAMILY PRACTICE 06/15/19 documented as of this encounter
--- OUTSIDE RECORDS SUMMARY | 2025-09-11 13:54 | XMS_ITS | Encounter Summary ---
Author Organization [facility] Address [address] [place] [address] Care Team Providers Care Operating Room Nurse Name Role Phone Todd Oliver MD Primary Care Provider +1- [phone] Encounter Details Date Type Department Care Team (Late Contact Info) Description 12/26/2023 Polaris Wirelesshart Message Enc [facility] Family & Internal [facility] [address] [place] [address] [place] [address] [place] [address] Sleep Study Social History Tobacco [...] (Late Contact Info) Description 10/18/2025 7:00 AM DISTRICT SERVICE MANAGER Office Visit [facility] Family & Internal Medicine [facility] [address] [place] [address] [place] [address] [place] [address] documented as of this encounter Visit Diagnoses Not on filedocumented in this encounter Additional Health Concerns Assessment Noted Time PHQ-9 Depression Total Score: 1 03/05/20 23 7:08 AM CDT documented as of this encounter Care Teams Operating Room Nurse Relationship Specialty [place] [address] [place] [address] PCP - General FAMILY PRACTICE 06/15/19 documented as of this encounter
--- OUTSIDE RECORDS SUMMARY | 2025-09-11 13:54 | XMS_ITS | Encounter Summary ---
Author Organization [facility] Address [address] [place] [address] Care Team Providers Care Sports Media Name Role Phone Todd Oliver MD Primary Care Provider +1- [phone] Encounter Details Date Type Department Care Team (Late Contact Info) Description 03/16/2024 Tinker Gameshart Message Enc [facility] Family & Internal Medicine [facility] [address] [place] [address] [place] [address] [place] [address] Diagnostic mammogram follow up Social [...] (Late Contact Info) Description 10/18/2025 7:00 AM RADIOLOGY PHYSICIAN ASSISTANT Office Visit [facility] Family & Internal Medicine [facility] [address] [place] [address] [place] [address] [place] [address] documented as of this encounter Visit Diagnoses Not on filedocumented in this encounter Additional Health Concerns Assessment Noted Time PHQ-9 Depression Total Score: 1 03/05/20 23 7:08 AM CDT documented as of this encounter Care Teams Sports Media Relationship Specialty [place] [address] [place] [address] PCP - General FAMILY PRACTICE 06/15/19 documented as of this encounter
--- OUTSIDE RECORDS SUMMARY | 2025-09-11 13:54 | XMS_ITS | Encounter Summary ---
Author Organization [facility] Address [address] [place] [address] Care Team Providers Care Cable Worker Helper Name Role Phone Todd Oliver MD Primary Care Provider +1- [phone] Encounter Details Date Type Department Care Team (Late st Contact Info) Description 09/26/2018 Abstract [facility] [address] [place] [address] , Generic ConversionMD Social History Tobacco Use [...] st Contact Info) Description 10/18/2025 7:00 AM MANAGER HRIS Office Visit [facility] Family & Internal Medicine [facility] [address] [place] [address] [place] [address] [place], [place] [id number] documented as of this encounter Visit Diagnoses Not on filedocumented in this encounter Care Teams Cable Worker Helper Relationship Specialty [place] [address] [place] [address] PCP - General FAMILY PRACTICE 06/15/19 documented as of this encounter
--- OUTSIDE RECORDS SUMMARY | 2025-09-11 13:54 | XMS_ITS | Encounter Summary ---
Author Organization [facility] Address [address] [place] [address] Care Team Providers Care Database Security Expert Name Role Phone Todd Oliver MD Primary Care Provider +1- [phone] Encounter Details Date Type Department Care Team (Late Contact Info) Description 01/19/2023 Virtual 3-D Display for Smartphonest Message Enc [facility] Family & Internal Medicine [facility] [address] [place] [address] Arelis Hanson, [facility] [address] [place] [address] Mammogram results Social History Tobacco [...] st Contact Info) Description 10/18/2025 7:00 AM 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 Office Visit [facility] Family & Internal Medicine [facility] [address] [place] [address] [place] [address] [place] [address] documented as of this encounter Visit Diagnoses Not on filedocumented in this encounter Additional Health Concerns Assessment Noted Time PHQ-9 Depression Total Score: 0 01/14/20 22 11:15 AM 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 documented as of this encounter Care Teams Database Security Expert Relationship Specialty [place] [address] [place] [address] PCP - General FAMILY PRACTICE 06/15/19 documented as of this encounter
--- OUTSIDE RECORDS SUMMARY | 2025-09-11 13:54 | XMS_ITS | Patient Health Record ---
Author Organization [employer] [facility] [place] ([address]) Address [address] [place] [address] Care Team Providers Care Customer Trainer Name Role Phone Alexx Monge Unavailable [phone] Allergies Allergen (clinical drug ingredient) Drug/Non Drug [...] review and pick correct strength-formulati on from Touchb[employer] options. 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 Thyroid 30 MG 1/2 tablet on an [...] Status W/U Status Risk Notes Problem Hypothyroidism (93551456) Hypothyroidism, unspecified (E03.9) Active confirmed Problem Malaise (652836400) Other malaise (R53.81) Active confirmed Problem Chronic fatigue syndrome (disorder) (87237593) Chronic fatigue, unspecified (R53.82) Active confirmed Problem Fatigue (11745233) Other fatigue (R53.83) Active confirmed Problem Abnormal weight gain (889568795) Abnormal weight gain (R63.5) Active confirmed Plan Of Treatment Pending Test Test Name Order Date T3, FREE 06/28/2024 HRT Female Pre Pellet 04/13/2024 Medical (General) History Medical History History ICD Code Essential (primary) hypertension I10 Anxiety disorder, unspecified F41.9 Dysthymic disorder F34.1
--- OUTSIDE RECORDS SUMMARY | 2025-09-11 13:55 | XMS_ITS | Clinical Summary ---
Author Organization [facility] Address [address] [place] [address] Phone Care Team Providers Care Stamping Machine Operator Name Role Phone Todd Oliver [...] Category 3: Probably benign findings DICTATION LOCATION: [facility] Todd Oliver MD MAMMO ORDERABLES Abiola burnham Result from Last 3 Months or Most Recently Relevant to Health Maintenance Insurance Care Teams Stamping Machine Operator Relationship Specialty [place] [address] [place] [address] PCP - General Family Practice 02/18/23
--- OUTSIDE RECORDS SUMMARY | 2025-09-11 13:55 | XMS_ITS | Clinical Summary ---
Author Organization [facility] Address [address] [place] [address] Care Team Providers Care Paralegals Name Role Phone Todd Oliver MD Primary Care Provider +1- [phone] Allergies Active Allergy Reactions Criticality Noted Date [...] on file Legal Sex Female 2:36 AM AUTOMOTIVE MECHANICAL ENGINEER Gender Identity Female 10/26/2020 8:06 AM AUTOMOTIVE MECHANICAL ENGINEER Sexual Orientation Straight 10/26/2020 8: 06 AM AUTOMOTIVE MECHANICAL ENGINEER Obstetrics History Last Filed Vital Signs Vital Sign Reading Time Taken Comments Blood Pressure 122/82 12/29/2022 1:21 PM AUTOMOTIVE MECHANICAL ENGINEER Pulse 94 12/29/2022 1:21 PM AUTOMOTIVE MECHANICAL ENGINEER Temperature - - Respiratory Rate 16 12/29/2022 1:21 PM AUTOMOTIVE MECHANICAL ENGINEER Oxygen Saturation 97% 03/04/2016 11:50 AM CDT Inhaled Oxygen Concentration - - Weight 74.8 kg (165 lb) 12/29/2022 1:21 PM AUTOMOTIVE MECHANICAL ENGINEER Height 157.5 cm (5' 2.01) 12/29/2022 1:21 PM CS T Body Mass Index 30.17 12/29/2022 1:21 PM AUTOMOTIVE MECHANICAL ENGINEER Plan of Treatment Health Maintenance Due Date [...] patient's age to complete this topic Insurance [employer] [facility] CHOICE PLUS [facility] HMO/PPO Address: [address] [address] [place] [address] Care Teams Paralegals Relationship Specialty [place] [address] [address] PCP - General 04/01/17
--- OUTSIDE RECORDS SUMMARY | 2025-09-11 13:55 | XMS_ITS | Encounter Summary ---
Author Organization [facility] Address [address] [place] [address] Care Team Providers Care Content Producer Name Role Phone Todd Oliver MD Primary Care Provider [phone] Reason for Visit * Reason Comments Image (SCAN) Encounter Details Date Type Department Care Team (Latest Contact Info) Description 08/31/2025 Scan HEALTH INFO [facility] Scanned, Doc Med Group Image (SCAN) Social History Tobacco Use Types Packs/Day Years [...] (Late Contact Info) Description 10/18/2025 7:00 AM MATTRESS WEAVER Office Visit [facility] Medical Group Family & Internal Medicine [address] [address] Todd Oliver MD [address] [place] [address] documented as of this encounter Procedures Procedure Name Priority Date/Time Associated Diagnosis Comments IMAGE GENERIC 08/31/2025 documented in this encounter Results * IMAGE GENERIC (08/31/2025) Anatomical Region Laterality Modality Other 08/31/2025 us Doc Med Group Scanned SCANNING Final Resu lt documented in this encounter Visit Diagnoses Not on filedocumented in this encounter Additional Health Concerns Assessment Noted Time PHQ-9 Depression Total Score: 1 03/05/20 23 7:08 AM CDT documented as of this encounter Care Teams Content Producer Relationship Specialty [place] [address] [place] [address] PCP - General FAMILY PRACTICE 06/15/19 documented as of this encounter
--- OUTSIDE RECORDS SUMMARY | 2025-09-11 13:55 | XMS_ITS | Patient Health Record ---
Author Organization [facility] Address [address] [facility] [address] [place] [address] Care Team Providers Care Library Media Technician Name Role Phone Benito STERLING, Todd Primary Care Provider Eliezer FINN MD, BERYL Unavailable [phone] Reason For Referral No Information Plan Of Treatment Pending Test Test Name Order Date Colonoscopy 09/02/2018 Insurance Providers Payer Name Payer Address Payer Phone Subscriber Number Group Number Insured Name Patient Relationship to Insured Coverage Start Date Coverage End Date [employer] [address] [place], [place] [id number] Ni Self - patient is the insured
== END 2025-09-11 11:51 | disposition home or self-care (01) ==
PROVIDERS: PCP Family Medicine; Visit Provider Orthopaedic Surgery
DX: M16.11 Unilateral primary osteoarthritis, right hip (principal)
CPT/HCPCS: 20610; 77002; J1010